=== PATIENT | female | born 1960 | race Caucasian/White ===

== ENCOUNTER 2016-09-22 19:58 | Inpatient (IN) | payer OTHER ==
[2016-09-22] MEDS ORDERED: NS 0.9% 1000 ML* 1,000 ML IV ONE ×2 (20:34→22:30)
--- NOTE | 2016-09-22 20:53 | RAD ---
HISTORY: Dizziness COMPARISONS: None VIEWS:1: Single frontal portable view of the chest at 8:52 PM FINDINGS: LINES AND TUBES: None. CARDIOMEDIASTINAL SILHOUETTE: The cardiomediastinal silhouette is normal for portable technique. PLEURA: The costophrenic angles are sharp. No pleural abnormalities are noted. LUNG PARENCHYMA: There is a 4.5 cm mass of the right upper lung ABDOMEN: The upper abdomen is clear. There is no subphrenic gas. BONES AND SOFT TISSUES: No bone or soft tissue abnormalities are noted. IMPRESSION: 4.5 CM MASS OF THE RIGHT UPPER LUNG CONCERNING FOR NEOPLASM. RECOMMEND CORRELATION WITH CONTRAST-ENHANCED CT OF THE CHEST IN THE NONACUTE SETTING
[2016-09-22] MEDS ORDERED: Pantoprazole IV* 40 MG IV ONE (21:08)
--- NOTE | 2016-09-22 21:08 | RAD ---
HISTORY: Headache COMPARISONS: None TECHNIQUE: Multiple contiguous axial CT scans were obtained of the head without intravenous contrast. FINDINGS: HEMORRHAGE/INFARCT: There is no hemorrhage or acute infarct. MASSES/SHIFT: There is no mass or shift. EXTRA-AXIAL SPACES: There are no extra-axial fluid collections. SULCI AND VENTRICLES: The sulci and ventricles are normal in size and position for the patient's stated age. CEREBRUM: There are no focal parenchymal abnormalities. BRAINSTEM: There are no focal parenchymal abnormalities. CEREBELLUM: There are no focal parenchymal abnormalities. VESSELS: The vessels are grossly normal. PARANASAL SINUSES: The paranasal sinuses are clear. ORBITS: The orbits are unremarkable. BONES AND SOFT TISSUE: No bone or soft tissue abnormalities are noted. OTHER: None IMPRESSION: NO ACUTE INTRACRANIAL PATHOLOGY.
[2016-09-22 21:15] LABS: Hematocrit 38 % (35-47); Hemoglobin 12.7 g/dl (12.0-16.0); Mean Corpuscular HGB Conc 33 g/dl (31-36); Mean Corpuscular Hemoglobin 31 pg (27-31); Mean Corpuscular Volume 94 fL (80-97); Mean Platelet Volume 8 um3 (7.4-10.4); Red Blood Count 4.06 10^6/ul (4.0-5.4); Red Cell Distribution Width 14 % (10.5-15); White Blood Count 11.9 10^3/ul (3.5-10.8)
[2016-09-22] MEDS ORDERED: Ondansetron INJ* 2 MG/ML VIAL ONE (21:25)
[2016-09-22] MEDS ORDERED: Ondansetron INJ* 2 MG/ML VIAL IV ONE (21:26)
[2016-09-22 21:33] LABS: ALT 22 U/L (7-52); AST 50 U/L (13-39); Albumin 3.6 g/dL (3.2-5.2); Alkaline Phosphatase 249 U/L (34-104); BUN/Creatinine Ratio 24.4 (8-20); Blood Urea Nitrogen 11 mg/dL (6-24); CO2 Carbon Dioxide 22 mmol/L (22-32); Calcium 9.9 mg/dL (8.6-10.3); Chloride 88 mmol/L (101-111); EGFR African American 184.7 (>60); EGFR Non-African American 143.6 (>60); Globulin 3.7 g/dL (2-4); Glucose 114 mg/dL (70-100); Magnesium 1.6 mg/dL (1.9-2.7); Total Protein 7.3 g/dL (6.4-8.9)
[2016-09-22 21:34] LABS: Troponin I 0.01 ng/mL (<0.04)
[2016-09-22 21:37] LABS: Anion Gap 8 mmol/L (2-11); Sodium 118 mmol/L (133-145)
[2016-09-22 21:49] LABS: TSH (Thyroid Stimulating Horm) 2.01 mcIU/mL (0.34-5.60)
--- NOTE | 2016-09-22 22:25 | ED ---
Surjit Mcknight Rebecca, scribed for Nadia Padillauel on 09/22/16 at 202 . Complex/Multi-Sys Presentation - HPI Summary HPI Summary: Pt is a 56 y/o F who presents to ED c/o low sodium (119) when she had blood work done at Dr. Zee's office earlier today. She was getting blood work due to L ear pain, diffuse OH, nausea and "heartburn." OH has been present for multiple weeks, worsening in the last week. Characterized as intermittent, sharp sensations. Currently, she is not in any pain. Denies dizziness, weakness. Sx aggravated and alleviated by nothing. At her visit she was prescribed Prilosec. - History Of Current Complaint Chief Complaint: EDGeneral Time Seen by Provider: 09/22/16 20:22 Hx Obtained From: Patient Onset/Duration: Still Present Timing: Intermittent, Lasting: Severity Currently: None Location: Pain At: - diffuse OH Character: Sharp Aggravating Factor(s): Nothing Alleviating Factor(s): Nothing Associated Signs And Symptoms: Positive: Nausea, Other - Low sodium, "heartburn, " L ear pain. Negative: Dizziness, Weakness - Allergies/Home Medications Allergies/Adverse Reactions: Allergies Allergy/AdvReac Type Severity Reaction Status Date / Time No Known Allergies Allergy Verified 09/22/16 20:08 PMH/Surg Hx/FS Hx/Imm Hx Cardiovascular History: Reports: Hx Hypertension Musculoskeletal History: Reports: Other Musculoskeletal History - pain extremities Neurological History: Reports: Other Neuro Impairments/Disorders - tingling numbness legs - Surgical History Surgery Procedure, Year, and Place: tubal,brice Infectious Disease History: No Infectious Disease History: Denies: Traveled Outside the [place] in Last 30 Days - Family History Known Family History: Positive: Cardiac Disease, Hypertension, Diabetes - Social History Alcohol Use: None Substance Use Type: Reports: None Smoking Status (MU): Never Smoked Tobacco Review of Systems Positive: Other - Low sodium Positive: Ear Ache - Left Positive: Nausea, Other - "heartburn" Neurological: Other - Denies dizziness Positive: Headache - Intermittent sharp sensation. Negative: Weakness All Other Systems Reviewed And Are Negative: Yes Physical Exam Triage Information Reviewed: Yes Vital Signs On Initial Exam: Initial Vitals Temp Pulse Resp BP Pulse Ox 98.7 F 108 16 127/65 97 09/22/16 20:08 09/22/16 20:08 09/22/16 20:08 09/22/16 20:08 09/22/16 20:08 Vital Signs Reviewed: Yes Appearance: Positive: Well-Appearing, No Pain Distress Skin: Positive: Warm, Skin Color Reflects Adequate Perfusion, Dry Head/Face: Positive: Normal Head/Face Inspection Eyes: Positive: EOMI, EBENEZER ENT: Positive: Normal ENT inspection, TMs normal Neck: Positive: Supple, Nontender Respiratory/Lung Sounds: Positive: Clear to Auscultation, Breath Sounds Present Cardiovascular: Positive: RRR, Pulses are Symmetrical in both Upper and Lower Extremities Abdomen Description: Positive: Nontender, Soft Bowel Sounds: Positive: Present Musculoskeletal: Positive: Normal, Strength/ROM Intact Neurological: Positive: Normal, Sensory/Motor Intact, Alert, Oriented to Person Place, Time - [place] Coma Scale Best Eye Response: 4 - Spontaneous Best Motor Response: 6 - Obeys Commands Best Verbal Response: 5 - Oriented Diagnostics - Vital Signs Vital Signs Temp Pulse Resp BP Pulse Ox 09/22/16 20:08 98.7 F 108 16 127/65 97 - Laboratory Result Diagrams: 09/22/16 21:00 09/22/16 21:00 Lab Statement: Any lab studies that have been ordered have been reviewed, and results considered in the medical decision making process. - Radiology CXR Xray Interpretation: Positive (See Comments) - 4.5 CM MASS OF THE RIGHT UPPER LUNG CONCERNING FOR NEOPLASM. RECOMMEND CORRELATION WITH CONTRAST-ENHANCED CT OF THE CHEST IN THE NONACUTE SETTING Radiology Interpretation Completed By: Radiologist - CT Brain CT CT Interpretation: No Acute Changes - NO ACUTE INTRACRANIAL PATHOLOGY CT Interpretation Completed By: Radiologist - EKG 2103 Cardiac Rate: Tachycardia - 103 bpm EKG Rhythm: Sinus Tachycardia EKG Interpretation: No acute changes Complex Multi-Symp Course/Dx Assessment/Plan: Pt is a 56 y/o F who presents to ED c/o low sodium (119) when she had blood work done at Dr. Zee's office earlier today. She was getting blood work due to L ear pain, diffuse OH, nausea and "heartburn." OH has been present for multiple weeks, worsening in the last week. Characterized as intermittent, sharp sensations. Currently, she is not in any pain. Denies dizziness, weakness. EKG reveals sinus tachycardia with no acute changes. Brain CT reveals no acute findings. CXR reveals "4.5 CM MASS OF THE RIGHT UPPER LUNG CONCERNING FOR NEOPLASM." WBX of 11.9, sodium of 118. Discussed care of pt with Dr. Lane, who accepts pt for admisison. She will be admitted with Dx of hyponatremia. She understands and agrees. Patient medications reviewed this visit. - Diagnoses Provider Diagnoses: Hyponatremia - Physician Notifications Discussed Care Of Patient With: Dario Lane Time Discussed With Above Provider: 21:42 Instructed by Provider To: Other - Accepts pt for admission Discharge - Discharge Plan Condition: Good Disposition: ADMITTED TO [facility] The documentation as recorded by the Surjit tamayo Rebecca accurately reflects the service I personally performed and the decisions made by , Dawood Padilla.
[2016-09-22] MEDS ORDERED: Albuterol 2.5 MG/3 ML NEB.SOL* (0.083%) INH PRN (22:27)
[2016-09-22] MEDS ORDERED: CMCS: Melatonin (NF) 3 MG TAB PO PRN (22:27)
[2016-09-22] MEDS ORDERED: Acetaminophen TAB* 325 MG PO PRN (22:27)
[2016-09-22] MEDS ORDERED: Ondansetron INJ* 2 MG/ML VIAL IV PRN (22:28)
[2016-09-22] MEDS ORDERED: NS 0.9% 1000 ML* 1,000 ML IV SCH (22:30)
[2016-09-22] MEDS ORDERED: traMADol TAB* 50 MG PO PRN (22:38)
[2016-09-22] MEDS ORDERED: ALPRAZolam TAB* 0.25 MG PO PRN (22:38)
[2016-09-22] MEDS ORDERED: LORazepam TAB(*) 1 MG PO ONE (22:41)
[2016-09-22 22:56] LABS: Alcohol < 10 mg/dL (<10)
--- NOTE | 2016-09-22 23:49 | HP ---
H&P (Free Text) History and Physical: PCP: AMILCAR Zee MD Date/Time of Evaluation: 09/22/2016 4675 CC: low sodium HPI: Mrs Ahumada is a 56YO female HX tissue AVR, HTN, HLD, & chronic BLE pain who was seen by her PCP today for complaint of L ear pain, heartburn, & headache. Labs were ordered finding her sodium to be [address] Zee's office called her recommending ED evaluation. She states her BP meds were increased recently. She denies chest pain, SOB, cough, congestion, F/C, N/V, or other issues. ED evaluation confirms marked hypoNatremia of 118 and CXR reveals a 4.5cm RUL mass. She is a current smoker. CT chest/abd/pel WO reveals numerous liver metastases. PMedHx tissue AVR HTN HLD chronic BLE pain Ambulatory Orders HYDROcodone/ACETAMIN 5-325 MG* 1 tab PO BID 07/20/13 Lisinopril/Hydrochlorothi 10-12.5 mg 1 tab PO DAILY 07/20/13 Medihoney Wound/Burn 1 TOPICAL DAILY 07/20/13 NIFEdipine ER TAB* 60 mg PO DAILY 07/20/13 Vitamin C TAB* 500 mg PO DAILY 07/20/13 Omeprazole 20 mg PO 09/22/16 Allergies No Known Allergies Allergy (Verified 09/22/16 20:08) PSurgHx tissue AVR cholecystectomy SocHx: 1PPD cigarettes unsure how long, denies alcohol and recreational drugs; lives with her ; works at [employer], has applied for disability for chronic BLE pain; full code status FamHx: Mother passed in her 60s from an unknown cancer. Father passed in his 60s from CAD. ROS: as above, otherwise reviewed and all were negative Constitutional: NAD, normally developed, overweight white female vitals: Vital Signs Temp 37.1 C 09/23/16 00:14 Pulse 98 09/23/16 00:01 Resp 23 09/23/16 00:01 BP 119/58 09/23/16 00:01 Pulse Ox 91 09/23/16 00:01 Intake & Output 09/22/16 09/22/16 09/23/16 11:59 23:59 11:59 Intake Total 10 Balance 10 Weight 58.967 kg Intake: IV Fluids 10 HEENM: atraumatic; sclera/conjunctiva: non-icteric/clear; hearing: clinically intact; oropharynx: clear, mucosa moist Neck: soft tissue: non-tender; thyroid: normal Pulmonary: clear to auscultation bilaterally, good aeration, no accessory muscle use CV: RR/RR, normal S1S2, no carotid bruit, no jugular venous distention, 2+ B DP/ PT, no edema Abdominal: soft, non-distended, non-tender, no rebound/guarding/rigidity, normoactive bowel sounds, liver palpable below R costal margin, no costovertebral angle tenderness Musculoskeletal: general: grossly intact; gait: stable Integumental: significant solar damage to exposed skin Psychiatric orientation: AA&O to [facility], but somewhat confused with inaccuracies in history, ie thought it was [facility] who called her about the low Na+ rather than Dr Zee's office affect: mildly anxious & fearful mood: cooperative eye contact: good to fair content: mostly reliable as above memory: mild inaccuracies as above responses: timely insight: fair to good Testing: Lab Results 09/22/16 09/22/16 09/22/16 Range/Units 21:00 21:00 21:00 WBC 11.9 H (3.5-10.8) 10^3/ul RBC 4.06 (4.0-5.4) 10^6/ul Hgb 12.7 (12.0-16.0) g/dl Hct 38 (35-47) % MCV 94 (80-97) fL MCH 31 (27-31) pg MCHC 33 (31-36) g/dl RDW 14 (10.5-15) % Plt Count 211 (150-450) 10^3/ul MPV 8 (7.4-10.4) um3 Neut % (Auto) 82.8 (38-83) % Lymph % (Auto) 8.8 L (25-47) % [place] % (Auto) 7.7 (1-9) % Eos % (Auto) 0.3 (0-6) % Baso % (Auto) 0.4 (0-2) % Absolute Neuts (auto) 9.8 H (1.5-7.7) 10^3/ul Absolute Lymphs (auto) 1.1 (1.0-4.8) 10^3/ul Absolute Monos (auto) 0.9 H (0-0.8) 10^3/ul Absolute Eos (auto) 0 (0-0.6) 10^3/ul Absolute Basos (auto) 0 (0-0.2) 10^3/ul Absolute Nucleated RBC 0 10^3/ul Nucleated RBC % 0 INR (Anticoag Therapy) 0.99 (0.89-1.11) APTT 25.2 L (26.0-36.3) seconds Sodium 118 L* (133-145) mmol/L Potassium 4.0 (3.5-5.0) mmol/L Chloride 88 L (101-111) mmol/L Carbon Dioxide 22 (22-32) mmol/L Anion Gap 8 (2-11) mmol/L BUN 11 (6-24) mg/dL Creatinine 0.45 L (0.51-0.95) mg/dL Est GFR ( Amer) 184.7 (>60) Est GFR (Non-Af Amer) 143.6 (>60) BUN/Creatinine Ratio 24.4 H (8-20) Glucose 114 H (70-100) mg/dL Calcium 9.9 (8.6-10.3) mg/dL Magnesium 1.6 L (1.9-2.7) mg/dL Total Bilirubin 0.70 (0.2-1.0) mg/dL AST 50 H (13-39) U/L ALT 22 (7-52) U/L Alkaline Phosphatase 249 H (34-104) U/L Troponin I 0.01 (<0.04) ng/mL Total Protein 7.3 (6.4-8.9) g/dL Albumin 3.6 (3.2-5.2) g/dL Globulin 3.7 (2-4) g/dL Albumin/Globulin Ratio 1.0 (1-3) TSH 2.01 (0.34-5.60) mcIU/mL Serum Alcohol < 10 (<10) mg/dL ECG, personally reviewed: sinus tachycardia rate 103, no ischemia CXR, personally reviewed: IMPRESSION: 4.5 CM MASS OF THE RIGHT UPPER LUNG CONCERNING FOR NEOPLASM. RECOMMEND CORRELATION WITH CONTRAST-ENHANCED CT OF THE CHEST IN THE NON-ACUTE SETTING CT chest WO, personally reviewed: IMPRESSION: RUL mass is highly suspicious for lung carcinoma. Multiple liver metastases. Possible metastatic mediastinal adenopathy. CT abd/pel WO, personally reviewed: IMPRESSION: Diffuse liver metastases. Large ventral hernia containing small and large bowel without obstruction or inflammation. CT brain WO, personally reviewed: IMPRESSION: NO ACUTE INTRACRANIAL PATHOLOGY. 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 carcinoma : ICU monitoring : 1000cc/day free water restriction : IV normal saline : DC HCTZ component of BP regimen : consider diuretics or 3% saline if refractory to above : supportive care RUL lung mass with hepatic metastases, new finding : CT chest/abd/pel W in AM : obtain tissue diagnosis via BX of RUL mass vs liver : case reviewed with Fuentes Toribio MD oncology who will arrange evaluation in the AM : supportive car anxiety : PRN alprazolam Secondary tissue AVR : no acute issues HTN : continue lisinopril HLD : continue rosuvastatin chronic BLE pain : continue oxycodoneAPAP GERD : continue omeprazole Admission Rational: inpatient for SIADH & work up of new diagnosis lung CA w/ hepatic mets DVTp: SCDs, hold anticoagulation in anticipation of lung/liver BX Code Status: full HCP:
[2016-09-23 01:57] LABS: BUN/Creatinine Ratio 20.5 (8-20); Calcium 9.4 mg/dL (8.6-10.3); EGFR African American 189.5 (>60); EGFR Non-African American 147.4 (>60)
[2016-09-23 04:36] LABS: Hematocrit 35 % (35-47); Hemoglobin 11.5 g/dl (12.0-16.0); Mean Corpuscular HGB Conc 33 g/dl (31-36); Mean Corpuscular Hemoglobin 31 pg (27-31); Mean Corpuscular Volume 94 fL (80-97); Mean Platelet Volume 7 um3 (7.4-10.4); Red Blood Count 3.68 10^6/ul (4.0-5.4); Red Cell Distribution Width 14 % (10.5-15); White Blood Count 7.3 10^3/ul (3.5-10.8)
[2016-09-23 04:49] LABS: BUN/Creatinine Ratio 21.2 (8-20); Calcium 8.5 mg/dL (8.6-10.3); EGFR African American 264.2 (>60); EGFR Non-African American 205.4 (>60); Potassium 3.7 mmol/L (3.5-5.0)
[2016-09-23] MEDS: Omeprazole CAP* 20 MG PO SCH (06:14)
[2016-09-23] MEDS ORDERED: Iohexol 300* (CONTRAST) 10 ML SDV IV ONE (07:41)
[2016-09-23] MEDS: Docusate CAP* 100 MG PO SCH ×2 (07:50→21:34)
--- NOTE | 2016-09-23 07:54 | RAD ---
Indication: Right upper lobe mass is present on chest x-ray. CT of the chest was performed without IV contrast. Coronal and sagittal reconstructed images were obtained. Inferior thyroid lobes are unremarkable. There is pretracheal lymph node measuring 8 mm. Prevascular space lymph nodes are noted measuring up to 7 mm. The heart demonstrates no pericardial effusion. A lobulated mass is noted in the periphery of the right upper lobe posteriorly measuring 4.3 x 2.5 cm. This is consistent with a neoplastic lesion. No other masses are noted in the lung guzman. The visualized abdominal organs demonstrates multiple low density lesions in the liver. This is consistent with metastatic disease. The spleen is normal in size. IMPRESSION: Lobulated mass in the right upper lobe posteriorly suspicious for neoplastic process. Hepatomegaly with multiple hepatic lesions consistent with metastatic disease.
--- NOTE | 2016-09-23 08:04 | RAD ---
INDICATION: Right upper lobe mass with multiple liver metastases. COMPARISON: Correlation is made with a prior CT angiogram of the abdomen and pelvis from July 20, 2013. TECHNIQUE: A CT scan of the abdomen and pelvis was performed without intravenous or oral contrast. Contiguous axial sections were obtained from the lung bases through the symphysis pubis. Images were reconstructed in the coronal and sagittal planes. FINDINGS: There is mild dependent bilateral lower lobe subsegmental atelectasis. No pleural effusion is present. The liver is markedly enlarged with multiple hypodense lesions throughout measuring up to 5.4 cm in size most consistent with metastatic disease. The spleen is normal in size without focal abnormality. The patient is status post cholecystectomy. The pancreas is normal in size. There is mild enlargement of the left adrenal gland. The right adrenal gland appears to be within normal limits. The kidneys are normal in size. There are small bilateral calcifications most consistent with renal calculi. No hydronephrosis is seen. There is severe calcific plaque present within the abdominal aorta. There appears to be an aortic biiliac by pass graft present. No significant enlarged retroperitoneal lymph nodes are seen. The stomach, small and large bowel appear nondistended. The appendix is not well visualized although no inflammatory changes are seen in the right lower quadrant. There is a large ventral hernia centered in the midline containing a portion of the transverse colon in small bowel loops which appear nondistended. No bowel wall thickening is appreciated. There is moderate descending and sigmoid diverticulosis without evidence for diverticulitis. The uterus is anteverted and normal in size. No free intraperitoneal air or fluid is seen. No significant focal osseous abnormality is seen. IMPRESSION: 1. ENLARGED LIVER WITH MULTIPLE HYPODENSE LESIONS CONSISTENT WITH METASTATIC DISEASE. 2. MILD ENLARGEMENT OF THE LEFT ADRENAL GLAND. 3. LARGE VENTRAL ABDOMINAL HERNIA CONTAINING NONDISTENDED SMALL BOWEL AND COLON. 3. SMALL BILATERAL NONOBSTRUCTING RENAL CALCULI.
--- NOTE | 2016-09-23 10:01 | CONSULT ---
Consultation - Reason for Consultation Reason for Consultation: lung and liver masses Ordering Provider: Dario Lane Chief Complaint: headaches and nausea History of Present Illness: 56 yo F w PMH of 40 pk yr smoking, HTN, hyplipidemia, and tissue AVR presenting with headache and vomiting and found to be markedly hyponatremic with a dominant lung lesion and innumerable liver mets. Radha is a fairly poor historian but reports 10 days of nausea, vomiting, headaches and left ear pain. She went to her PMD with these complaints and blood work revealed a sodium of 119. She was referred to the ER where repeat was 118 and had a chest CT which revealed a 4.3 cm lobulated RUL mass with multiple hepatic lesions. She was admitted to the ICU and hydrated and her Na this am is 128. She admits to weight loss, though is not clear at how much. At her heaviest she was 165. She reports that her nausea and vomiting are related to heart burn. She denies diplopia, blurred vision or focal weakness. She does have left sided temporal headaches. She denies bony pain, abdominal pain ( specifically denies RUQ pain), or change in bowel movements. She does have bilateral LE painful neuropathy which she reports to having a nerve "nicked" during her aortic valve replacement. She does not drink. She can not remember when her last mammogram was and has not had a colonoscopy. She has a mild baseline cough but no chest pain or shortness of breath. Allergies/Medications Medication: Acetaminophen (Tylenol Tab*) 650 mg PO Q6H PRN PRN Reason: FEVER/PAIN Albuterol (Ventolin 2.5 Mg/3 Ml Neb.Dafne*) 2.5 mg INH Q2H PRN PRN Reason: SOB/WHEEZING Alprazolam (Xanax Tab*) 0.25 mg PO Q8H PRN PRN Reason: ANXIETY Docusate Sodium (Colace Cap*) 200 mg PO BID ON LICENSE OF [facility] Last Admin: 09/23/16 07:50 Dose: 200 mg Melatonin (Melatonin (Nf)) 3 mg PO BEDTIME PRN; Protocol PRN Reason: Sleep Omeprazole (Prilosec Cap*) 20 mg PO DAILY@0600 ON LICENSE OF [facility] Last Admin: 09/23/16 06:14 Dose: 20 mg Ondansetron HCl (Zofran Inj*) 4 mg IV Q6H PRN PRN Reason: NAUSEA Tramadol HCl (Ultram*) 50 mg PO Q6H PRN PRN Reason: PAIN Allergies/Adverse Reactions: Allergies Allergy/AdvReac Type Severity Reaction Status Date / Time Latex Allergy Itching Verified 09/23/16 05:45 History - Past Medical History Other History: HTN. hyperlipidemia. tobacco abuse. peripheral neuropathy/ pain. tissue AVR. cholecystectomy - Family History Other Family History: mother some type of cancer, in her 60s - Social History Other Social History: +heavy tobacco, no ETOH, 1 child Review of Systems - Review of Systems General Comments: extensive ROS as per HPI Physical Exam - Physical Exam Physical Examination: Vital Signs Temp Pulse Resp BP Pulse Ox 97.7 F 94 17 90/49 91 09/23/16 08:00 09/23/16 06:00 09/23/16 06:00 09/23/16 06:00 09/23/16 06:00 sitting up in NAD perr eomi poor dentition moist mucous membranes no EMILIA soft +palpable hepatomegaly, large ventral hernia, easily reduced no le edema A+O x 3, nonfocal neurological exam though did not ambulate Results - Lab Results Lab Results: 09/23/16 09/23/16 09/23/16 00:40 04:20 04:20 WBC 7.3 RBC 3.68 L Hgb 11.5 L Hct 35 MCV 94 MCH 31 MCHC 33 RDW 14 Plt Count 150 MPV 7 L Sodium 120 L 128 L D Potassium 4.0 3.7 Chloride 91 L 100 L Carbon Dioxide 23 23 Anion Gap 6 5 BUN 9 7 Creatinine 0.44 L 0.33 L Est GFR ( Amer) 189.5 264.2 Est GFR (Non-Af Amer) 147.4 205.4 BUN/Creatinine Ratio 20.5 H 21.2 H Glucose 96 89 Calcium 9.4 8.5 L - Radiology Radiology Results: CT C/A/P with PO and IV contrast: pending official read, personal review large RUL mass, innumerable liver lesions, no bulky adenopathy, no clear bony lesions Assessment and Plan Impression: 56 yo F w long standing tobacco use presenting with hyponatremia and found to have a large lung lesion and multiple liver mets. This is most suspicious for a lung primary, with differential including small cell given the liver met pattern. I discussed this with Radha and her at length. I would recommend a liver biopsy for tissue diagnosis and follow up with me next week. We discussed that treatment options depend on cancer type, however if this is metastatic lung cancer as I suspect, all treatments are palliative. In terms of her hyponatremia, I suspect that it is multifactorial and related to 1)HCTZ use, and 2)SIADH from her tumor. She is already improving. In terms of her headaches, she will need a brain MRI with contrast next week (she had IV contrast today and so can not get for 48 hours unless emergent). I will see her in my main [facility] office 09/30 at 11 am. Please provide her with this information on discharge. I will also order her MRI for earlier in the week next week.
--- NOTE | 2016-09-23 12:41 | RAD ---
Indication: Liver metastases, lung mass, hyponatremia Contrast: Administered 79.1 ml of OMNIPAQUE 300 mg/ml. CT of the chest, abdomen and pelvis was performed after oral and IV contrast administration. Inferior thyroid lobes are unremarkable. There is a prevascular space lymph node measuring 8 mm. Precarinal lymph node measuring up to 9 mm. Right hilar adenopathy is noted. The heart demonstrates no pericardial effusion. The trachea and major bronchi appear patent. Lobulated mass in the right upper lobe is again identified measuring 4.0 cm in length x 4.5 cm AP x 2.8 cm in greatest width. No evidence of alveolar consolidation is noted. The trachea and major bronchi appear patent. No atelectasis is noted. No other nodules are identified. CT of the abdomen and pelvis demonstrates the liver to be enlarged. Innumerable low density lesions are present throughout the liver consistent with metastatic disease. The spleen is normal in size. The pancreas demonstrates no mass or pancreatic duct dilatation. The common duct is not dilated. No adrenal lesions are noted. The kidneys demonstrate symmetric nephrograms without focal lesions. Atherosclerotic aorta is noted. Patient is status post aortic bifemoral bypass graft. There is a ventral wall hernia containing colon without evidence of obstruction. CT of the pelvis demonstrates diverticulosis without definite evidence of diverticulitis. The uterus and ovaries are unremarkable. IMPRESSION: 1. Dominant lobulated mass in the right upper lobe as described previously. 2. Multiple hepatic lesions consistent with metastatic disease. 3. Ventral hernia containing colon.
[2016-09-23] MEDS ORDERED: fentaNYL* 50 MCG/ML 2 ML VIAL (100 MCG VIAL) ONE (14:04)
--- NOTE | 2016-09-23 15:47 | RAD ---
Indication: Hepatic lesions. Using usual aseptic technique and lidocaine as a local anesthetic lesions in the right lobe of liver was localized. Under ultrasound guidance fine-needle aspiration was performed. One pass was made. IMPRESSION: Successful ultrasound-guided localization and biopsy of the lesion in the right lobe of the liver.
[2016-09-23] MEDS: Morphine INJ* 2 MG/ML 1 ML SYRINGE IV PRN ×2 (16:15→21:29)
--- NOTE | 2016-09-23 17:10 | PN ---
Subjective Date of Service: 09/23/16 Interval History: HOSPITALIST PROGRESS NOTE Patient seen and examined at bedside. She offers no complaints at this time. Denies OH, N/V, dizziness. Family History: Unchanged from Admission Social History: Unchanged from Admission Past Medical History: Unchanged from Admission Objective Active Medications: Acetaminophen (Tylenol Tab*) 650 mg PO Q6H PRN PRN Reason: FEVER/PAIN Albuterol (Ventolin 2.5 Mg/3 Ml Neb.Dafne*) 2.5 mg INH Q2H PRN PRN Reason: SOB/WHEEZING Alprazolam (Xanax Tab*) 0.25 mg PO Q8H PRN PRN Reason: ANXIETY Last Admin: 09/23/16 11:21 Dose: 0.25 mg Docusate Sodium (Colace Cap*) 200 mg PO BID [facility] Last Admin: 09/23/16 07:50 Dose: 200 mg Melatonin (Melatonin (Nf)) 3 mg PO BEDTIME PRN; Protocol PRN Reason: Sleep Morphine Sulfate (Morphine Inj (Syringe)*) 2 mg IV Q4H PRN PRN Reason: PAIN Last Admin: 09/23/16 16:15 Dose: 2 mg Omeprazole (Prilosec Cap*) 20 mg PO DAILY@0600 [facility] Last Admin: 09/23/16 06:14 Dose: 20 mg Ondansetron HCl (Zofran Inj*) 4 mg IV Q6H PRN PRN Reason: NAUSEA Tramadol HCl (Ultram*) 50 mg PO Q6H PRN PRN Reason: PAIN Last Admin: 09/23/16 14:55 Dose: 50 mg Vital Signs 09/23/16 09/23/16 09/23/16 14:50 14:55 16:15 Temperature 98.5 F Pulse Rate 100 Respiratory 18 18 18 Rate Blood Pressure 121/57 (mmHg) O2 Sat by Pulse 93 Oximetry Oxygen Devices in Use Now: None Appearance: Middle aged lady lying in bed in NAD. Eyes: No Scleral Icterus Ears/Nose/Mouth/Throat: Mucous Membranes Moist Neck: Trachea Midline Respiratory: Symmetrical Chest Expansion and Respiratory Effort, Clear to Auscultation Cardiovascular: RRR - Normal S1 and S2 Abdominal: NL Sounds; No Tenderness; No Distention Extremities: No Edema Neurological: Alert and Oriented x 3, NL Muscle Strength and Tone Lines/Tubes/Other Access: Clean, Dry and Intact Peripheral IV Nutrition: Taking PO's Result Diagrams: 09/23/16 04:20 09/23/16 04:20 Assess/Plan/Problems-Billing Assessment: Mrs. Ahumada is a 56yo F with PMH of HTN, HLD, s/p biological AVR, chronic bilateral LE pain, tobacco abuse, who was sent to ED due to significant hyponatremia, found to have a lung tumor with probable liver mets. - Patient Problems (1) Hyponatremia Comment: - Likely secondary to SIADH associated with Lung CA, worsened by HCTZ. - Already improving. - Continue to monitor. (2) Liver metastases Comment: - Suspect Lung CA as primary with liver mets. - For liver biopsy today. (3) HTN (hypertension) Comment: - Controlled. - D/c HCTZ and continue Lisinopril. (4) DVT prophylaxis Comment: - No heparin due to liver biopsy. - SCDs. (5) Full code status Status and Disposition: Inpatient.
[2016-09-23 20:09] LABS: BUN/Creatinine Ratio 20.6 (8-20); Calcium 8.8 mg/dL (8.6-10.3); EGFR African American 255.2 (>60); EGFR Non-African American 198.5 (>60); Potassium 3.7 mmol/L (3.5-5.0)
[2016-09-24] MEDS: Morphine INJ* 2 MG/ML 1 ML SYRINGE IV PRN (01:56)
[2016-09-24] MEDS: Omeprazole CAP* 20 MG PO SCH (05:31)
[2016-09-24 05:36] LABS: BUN/Creatinine Ratio 21.2 (8-20); Calcium 8.9 mg/dL (8.6-10.3); EGFR African American 264.2 (>60); EGFR Non-African American 205.4 (>60); Potassium 3.6 mmol/L (3.5-5.0)
[2016-09-24] MEDS: Docusate CAP* 100 MG PO SCH (07:55)
[2016-09-24 07:58] VITALS: BP 126/61
[2016-09-24] MEDS ORDERED: HYDROcodone/ACETAMIN 5-325 MG* 1 TAB PO SCH (09:00)
[2016-09-24] MEDS ORDERED: Lisinopril TAB* 10 MG PO SCH (09:00)
--- NOTE | 2016-09-25 16:32 | DS ---
CC: Dr. Marcos Zee; Dr. Aguila DISCHARGE SUMMARY: DATE OF ADMISSION: 09/22/16 DATE OF DISCHARGE: 09/24/16 PRIMARY CARE PROVIDER: Dr. Marcos Zee. ONCOLOGIST: Dr. Aguila. DISCHARGE DIAGNOSES: 1. Severe hyponatremia secondary to syndrome of inappropriate antidiuretic hormone secretion, likel y associated with lung tumor and hydrochlorothiazide use. 2. Right upper lobe tumor with probable liver metastasis. SECONDARY DIAGNOSES: 1. Status post biological aortic valve replacement. 2. Hypertension. 3. Hyperlipidemia. 4. Chronic bilateral lower extremity pain. MEDICATION LIST: 1. Omeprazole 20 mg p.o. daily. 2. Vitamin C 500 mg p.o. twice daily. 3. Hydrocodone/acetaminophen 5/325 mg 1 tablet p.o. b.i.d. 4. Nifedipine ER 60 mg p.o. daily. 5. Ibuprofen 600 mg p.o. q.6 hours p.r.n. pain. NEW MEDICATIONS: 1. Lisinopril 10 mg p.o. daily. 2. Colace 200 mg p.o. b.i.d. p.r.n. constipation. 3. Nicotine patch 21 mg topical daily, remove at bedtime. 4. Nicotine gum 2 mg p.o. q.2 hours p.r.n. cravings. 5. Alprazolam 0.25 mg p.o. b.i.d. p.r.n. anxiety, MDD 2 tablets, dispensed 14 tablets. The [facility] prescription monitoring program was consulted and the patient last received the p rescription for hydrocodone on September 01. There is no prescription for alprazolam. Reference manuela hickey is [id number]. HOSPITAL COURSE: Ms. Ahumada is a 56-year-old lady with past medical history as stated above that was seen by her PCP with complaints of heartburn, headache, dizziness. Labs were ordered and she was f ound to have a sodium of 119, so she was sent to the emergency room for further evaluation. Her wor kup in the emergency room revealed a sodium of 118 and a chest x-ray showed a 4.5 cm mass of the rig ht upper lung concerning for neoplasm. The patient was admitted to the intensive care unit to manag e her hyponatremia. The impression was that the patient had a SIADH likely secondary to a lung carc inoma and worsened by the addition of hydrochlorothiazide to her antihypertensive regimen. Hydrochlorothiazide was discontinued. The patient was started on 1 L a day fluid restriction and sh e had progressive improvement on her sodium. By the day of discharge, the sodium was up to 129. As part of her workup, the patient had a CT of the brain without contrast that showed no acute intra cranial pathology. CT of the chest without contrast showed a lobulated mass in the right upper lobe posteriorly suspicious for neoplastic process. There was also hepatomegaly with multiple hepatic l esions consistent with metastatic disease. She underwent a CT of the abdomen and pelvis without con trast that showed enlarged liver with multiple hyperdense lesions consistent with metastatic disease , mild enlargement of the left adrenal gland, large ventral abdominal hernia containing nondistended small bowel in colon, small bilateral nonobstructing renal calculi. She also underwent a CT of the chest abdomen and pelvis with contrast that showed similar findings o f a dominant lobulated mass in the right upper lobe, multiple hepatic lesions consistent with metas tatic disease and ventral hernia containing colon. The patient was seen in consultation by Oncology (Dr. Aguila) and her impression was the patient w as a 56-year-old lady with a longstanding tobacco use, presenting with hyponatremia and found to hav e a large lung lesion and multiple liver mets. This is most suspicious for lung primary with differe ntial including small cell given the liver metastasis pattern. She recommended liver biopsy and fol lowup with her next week on September 30 at 11 a.m. In terms of her hyponatremia, she suspected it was multifactorial related to hydrochlorothiazide use and SIADH from her tumor. In terms of the patient 's headache, her recommendation was for MRI of the brain with contrast that she will arrange for ear ly next week. The patient underwent an ultrasound-guided liver biopsy on October 01 and pathology report is pending at the time of this dictation and will need to be followed as outpatient. The patient states that she had minimal pain on the biopsy site and was feeling well enough to be discharged home today. The patient has a history of tobacco abuse and is interested in quitting at this time. Nicotine sup plementation was prescribed, but the patient will need further support as outpatient. She has a BMP request for September 27 to continue to monitor her sodium. The results will be sent to Dr. Zee and to Dr. Aguila. She is mostly stable today to go home. She will see Dr. Zee on September 29 at 3:10 p.m. and she will see Dr. Aguila on September 30 at 11 a.m. PHYSICAL EXAMINATION: Vital Signs: Temperature 98.6, heart rate is 97, respiratory rate is 20, oxy gen saturation 91% on room air, blood pressure is 126/61. General: The patient is a thin middle-ag ed lady, sitting up in bed, in no acute distress. CVS: Normal S1 and S2. Regular rate and rhythm. Chest: Breath sounds present bilaterally with no added sounds. Abdomen: Soft. The patient has small ecchymosis to her right upper quadrant, but no significant tenderness. Bowel sounds are prese nt. Extremities: No edema. Neuro: She is alert and oriented x3. She is able to move all 4 extrem ities. DIET: Heart healthy diet. The patient was advised to avoid excess caffeine and she is in a fluid r estriction of 1.5 L a day. ACTIVITY: As tolerated. DISPOSITION: To home. STATUS WHILE IN THE HOSPITAL: Inpatient. Please keep in mind this is a summarized version of this patient's hospital stay. If you need more i nformation, please feel free to call me at [phone] or please obtain the full medical records. TIME SPENT: Approximately 45 minutes were spent to complete this discharge. [id number]/[facility] #: [id number]
== END 2016-09-24 11:15 | disposition home or self-care (01) | DRG 424 ==
LOC: ED 19:58 → ICU 22:14 → MEDTELE 09-23 11:34
PROVIDERS: ADMIT Hospitalist; ATTEND Internal Medicine
PROC: 0FB13ZX Excision of Right Lobe Liver, Percutaneous Approach, Diagnostic (ICD-10-PCS; principal; 2016-09-23)
DX: E22.2 Syndrome of inappropriate secretion of antidiuretic hormone (principal); C34.91 Malignant neoplasm of unspecified part of right bronchus or lung; C78.7 Secondary malignant neoplasm of liver and intrahepatic bile duct; I10 Essential (primary) hypertension; E78.5 Hyperlipidemia, unspecified; G89.29 Other chronic pain; F17.210 Nicotine dependence, cigarettes, uncomplicated; E66.3 Overweight; T50.2X5A Adverse effect of carbonic-anhydrase inhibitors, benzothiadiazides and other diuretics, initial encounter; M79.605 Pain in left leg; M79.604 Pain in right leg; R16.0 Hepatomegaly, not elsewhere classified; N20.0 Calculus of kidney; K43.9 Ventral hernia without obstruction or gangrene; F41.9 Anxiety disorder, unspecified; K21.9 Gastro-esophageal reflux disease without esophagitis; R40.2362 Coma scale, best motor response, obeys commands, at arrival to emergency department; R40.2142 Coma scale, eyes open, spontaneous, at arrival to emergency department; R40.2252 Coma scale, best verbal response, oriented, at arrival to emergency department; G62.9 Polyneuropathy, unspecified; R51 Headache; Z95.4 Presence of other heart-valve replacement; Z80.9 Family history of malignant neoplasm, unspecified; Z82.49 Family history of ischemic heart disease and other diseases of the circulatory system; Z68.25 Body mass index [BMI] 25.0-25.9, adult; Z90.49 Acquired absence of other specified parts of digestive tract; Z98.51 Tubal ligation status; Z83.3 Family history of diabetes mellitus
CPT/HCPCS: 36415; 47000; 70450; 71010; 71250; 71260; 74176; 74177; 76942; 80048; 80053; 80320; 83735; 84443; 84484; 85025; 85027; 85610; 85652; 85730; 87641; 93005; A9270-GY; G0480; J2270; J2405; J3010; Q9967

== ENCOUNTER 2016-10-25 07:26 | Day surgery (SDC) | payer OTHER ==
[~2016-10-25 07:26] MED LIST: Buffered Lidocaine 0.9% SYRIN* 5 ML/SYR SYRINGE INTRADERM ONE; NS 0.9% 1000 ML* 1,000 ML IV SCH
[2016-10-25] MEDS ORDERED: Buffered Lidocaine 0.9% SYRIN* 5 ML/SYR SYRINGE ONE (07:28)
[2016-10-25] MEDS ORDERED: ceFAZolin 2 GM PREMIX (*) 50 ML IVPB ONE (07:28)
[2016-10-25 07:58] LABS: Hematocrit 35 % (35-47); Hemoglobin 11.5 g/dl (12.0-16.0); Mean Corpuscular HGB Conc 33 g/dl (31-36); Mean Corpuscular Hemoglobin 31 pg (27-31); Mean Corpuscular Volume 93 fL (80-97); Mean Platelet Volume 8 um3 (7.4-10.4); Red Blood Count 3.75 10^6/ul (4.0-5.4); Red Cell Distribution Width 15 % (10.5-15); White Blood Count 4.2 10^3/ul (3.5-10.8)
[2016-10-25 08:06] LABS: Add Diff/Slide Review? Slide Review Added; Comments Flag Yes
[2016-10-25] MEDS ORDERED: DiMENhydriNATE IV* 50 MG/ML VIAL IV PUSH PRN (08:59)
[2016-10-25] MEDS ORDERED: PROCHLORPERAZINE INJ 5 MG/ML 2 ML VIAL IV PRN (08:59)
[2016-10-25] MEDS ORDERED: Acetaminophen TAB* 325 MG PO PRN (08:59)
[2016-10-25] MEDS ORDERED: HYDROcodone/ACETAMIN 5-325 MG* 1 TAB PO PRN (08:59)
[2016-10-25] MEDS ORDERED: fentaNYL* 50 MCG/ML 2 ML VIAL (100 MCG VIAL) ONE (09:10)
[2016-10-25] MEDS ORDERED: KETAMINE HCL* 50 MG/ML 10 ML VIAL ONE (09:10)
[2016-10-25] MEDS ORDERED: Midazolam* 1 MG/ML 2 ML VIAL (2 MG) ONE ×2 (09:10→10:06)
[2016-10-25 09:15] LABS: Eosinophils % 1 % (0-6); Immature Granulocytes 4 % (0-9); Metamyelocytes % 2 % (0-2); Myelocytes % 2 % (0-1); Neutrophil % 43 % (38-83); Reactive Lymph % 2 % (0-6)
[2016-10-25 09:16] LABS: RBC Morphology Normal (Normal)
[2016-10-25] MEDS ORDERED: Lidocaine 1% INJ* 10 MG/ML 30 ML SDV ONE (09:34)
[2016-10-25] MEDS ORDERED: Propofol* 10 MG/ML 20 ML BTL IV PUSH ONE (10:30)
[2016-10-25] MEDS ORDERED: Dexamethasone IV* 4 MG/ML 1 ML (4 MG) ONE (10:30)
[2016-10-25] MEDS ORDERED: Famotidine IV* 10 MG/ML 2 ML (20 mg) ONE (10:30)
[2016-10-25] MEDS ORDERED: Lidocaine 2% PF * 5 ML VIAL ONE (10:30)
[2016-10-25] MEDS ORDERED: oxyCODONE/Acetamin 5/325 MG* TAB PO PRN (11:09)
[2016-10-25 11:25] VITALS: BP 128/74
--- NOTE | 2016-10-25 11:40 | RAD ---
Indication: Post power port placement. Comparison: September 23, 2016 CT. Technique: Upright AP 1022 hours Report: Tip of LEFT chest port is at the level of the superior vena cava RIGHT atrial junction. Negative for pneumothorax. 3.6 x 3.2 cm peripheral apical segment RIGHT upper lobe mass corresponds with prior CT finding. No additional conspicuous focal pulmonary lesions. Negative for pleural effusions. Negative for cardiomegaly. Unremarkable central pulmonary vasculature and mediastinal contours. IMPRESSION: Appropriate position of the tip of the LEFT chest port. Negative for pneumothorax.
--- NOTE | 2016-10-25 11:42 | RAD ---
INDICATION: chest port placement COMPARISONS: None relevant TECHNIQUE: Fluoroscopy was provided for a vascular access procedure. Total fluoroscopy time is: 98.3 seconds FINDINGS: Spot images demonstrate a left-sided chest port overlying the cavoatrial junction. IMPRESSION: FLUOROSCOPY WAS PROVIDED FOR A VASCULAR ACCESS PROCEDURE CPT II Codes: 6045F
[2016-10-25] MEDS ORDERED: HYDROcodone/ACETAMIN 5-325 MG* 1 TAB ONE (11:43)
--- NOTE | 2016-10-26 01:35 | OP ---
CC: HONEY Bob * DATE OF OPERATION: 10/25/16 - [facility] DATE OF : 58 SURGEON: Juan C Barnett MD VIDEO PRODUCTION SPECIALIST: None. ANESTHESIOLOGIST: Henry Delvalle MD ANESTHESIA: Local with monitored anesthesia care. PRE-OP DIAGNOSIS: Right-sided lung cancer. POST-OP DIAGNOSIS: Right-sided lung cancer. OPERATIVE PROCEDURE: Insertion of an 8-Guinean left chest wall percutaneous subclavian vein PowerPort. ESTIMATED BLOOD LOSS: Minimal. SPECIMENS: None. COMPLICATIONS: None. DESCRIPTION OF PROCEDURE: Written informed consent was obtained. The left and right chest were marked with indelible ink and preoperative antibiotics were administered. The patient was taken to the operating room and placed in the supine position. Sequential compression devices were placed in the lower extremities. Anesthesia was administered in the left and right chest and upper and lower neck were prepped and draped in the usual sterile fashion. Time-out verification was completed. The patient was placed in Trendelenburg position and 1% lidocaine with epinephrine was infiltrated in the left chest wall just below the mid portion of the clavicle. An 18-gauge Cook needle was used to puncture the subclavian vein on the first pass with good blood return. Guidewire was inserted into the superior vena cava without difficulty and confirmed to be in position on fluoroscopy. Next, a small transverse incision was made just below the initial puncture site and a subcutaneous pocket was made large enough to fit the port. The catheter was then tunneled from the port site to the initial puncture site; and, using the peel-away sheath dilator system, we were able to insert the catheter into the junction of the right atrium and superior vena cava. The catheter withdrew blood well and was flushed without difficulty. The catheter itself was cut to the appropriate length and attached to the port in the usual fashion. The port was placed in the pocket. Once again, it was checked with a Rojas needle and flushed well and withdrew blood without difficulty. The port was then secured to the subcutaneous tissue with 2 separate 2-0 Prolene suture. Hemostasis was assured. The transverse incision was closed with a running 3-0 and 4-0 subcuticular Polysorb suture. The puncture site was also closed with a single 4-0 Polysorb suture. Steri-Strips were applied. The port was then accessed with a right angle Rojas needle and flushed with saline and heparin. Appropriate occlusive dressing was placed for plans for chemotherapy to be administered later today. The patient tolerated the procedure well and was taken to recovery room in stable condition. The postoperative chest x-ray showed no pneumothorax and the catheter to be in good position. [id number]/[facility] #: [id number] [facility]
== END 2016-10-25 11:48 | disposition home or self-care (01) ==
LOC: OR 07:26
PROVIDERS: ATTEND Surgery
DX: C34.11 Malignant neoplasm of upper lobe, right bronchus or lung (principal); I10 Essential (primary) hypertension; E11.51 Type 2 diabetes mellitus with diabetic peripheral angiopathy without gangrene; C78.7 Secondary malignant neoplasm of liver and intrahepatic bile duct; E87.1 Hypo-osmolality and hyponatremia; R51 Headache; F41.9 Anxiety disorder, unspecified; Z88.1 Allergy status to other antibiotic agents; Z87.891 Personal history of nicotine dependence
CPT/HCPCS: 36415; 71010; 76000; 85025; C1788; J0690; J1100; J1642; J2001; J2250; J2704; J3010

== ENCOUNTER 2017-03-21 17:43 | Inpatient (IN) | payer OTHER ==
[2017-03-21] MEDS ORDERED: Prochlorperazine TAB* 10 MG PO PRN (17:50)
[2017-03-21] MEDS ORDERED: Docusate CAP* 100 MG PO PRN (17:50)
[2017-03-21] MEDS ORDERED: Nicotine PATCH 21 MG/24 HR* PATCH TRANSDERM PRN (17:50)
[2017-03-21] MEDS ORDERED: Ondansetron TAB* 4 MG PO PRN (17:50)
[2017-03-21] MEDS: Cyclobenzaprine TAB* 10 MG PO PRN (19:48)
[2017-03-21] MEDS: Furosemide IV* 10 MG/ML VIAL (40 MG) IV SCH (19:49)
[2017-03-21] MEDS: Potassium Chlor TAB* 10 MEQ TAB.ER PO SCH (19:49)
[2017-03-22] MEDS: oxyCODONE TAB* 5 MG TAB PO PRN ×3 (01:54→20:06)
[2017-03-22] MEDS ORDERED: cefTRIAXone(*) 1 GM in NS 0.9% 50 ML* 50 ML IVPB ONE (05:00)
[2017-03-22 06:23] LABS: EGFR Non-African American 229.3 (>60)
[2017-03-22 06:56] LABS: Monocytes % 9 % (0-13)
[2017-03-22 06:57] LABS: Hematocrit 26 % (35-47); Hemoglobin 9.1 g/dl (12.0-16.0); Mean Corpuscular HGB Conc 35 g/dl (31-36); Mean Corpuscular Hemoglobin 33 pg (27-31); Mean Corpuscular Volume 95 fL (80-97); Mean Platelet Volume 8 um3 (7.4-10.4); Platelet Count 33 10^3/ul (150-450); Red Blood Count 2.76 10^6/ul (4.0-5.4); Red Cell Distribution Width 14 % (10.5-15); White Blood Count 0.2 10^3/ul (3.5-10.8)
[2017-03-22] MEDS ORDERED: KCL 20 MEQ/100 ML IVPREMIX* 20 MEQ/100 ML BAG IV SCH (08:00)
[2017-03-22] MEDS ORDERED: Acetaminophen TAB* 325 MG ONE (08:53)
[2017-03-22] MEDS ORDERED: NIFEdipine ER TAB* 30 MG PO SCH (09:00)
[2017-03-22] MEDS ORDERED: Acetaminophen TAB* 325 MG PO PRN (09:01)
[2017-03-22] MEDS: Furosemide IV* 10 MG/ML VIAL (40 MG) IV SCH (09:04)
[2017-03-22] MEDS: Omeprazole CAP* 20 MG PO SCH (09:04)
[2017-03-22] MEDS: Ascorbic Acid TAB* 500 MG PO SCH (09:04)
[2017-03-22] MEDS: Dexamethasone TAB* 4 MG PO SCH (09:04)
[2017-03-22] MEDS: Potassium Chlor TAB* 10 MEQ TAB.ER PO SCH ×2 (09:04→20:06)
[2017-03-22] MEDS: KCL premix 10MEQ/50 ML x 3 RUNS IV SCH ×5 (09:06→16:21)
[2017-03-22] MEDS: ALPRAZolam TAB* 0.25 MG PO PRN (09:30)
[2017-03-22] MEDS ORDERED: Vancomycin per Pharmacy* NOTE FOLLOW UP PRN (09:32)
[2017-03-22] MEDS ORDERED: CEFEPIME 2 GM IVPB SCH ×2 (10:00)
[2017-03-22] MEDS ORDERED: NS 0.9% 1000 ML* 1,000 ML IV SCH (10:45)
[2017-03-22] MEDS ORDERED: Vancomycin(*) 1,000 MG in NS 0.9% 250 ML* 250 ML IVPB ONE (11:00)
[2017-03-22] MEDS: Cefepime(*) 2 GM in D5W 50 ML BAG* 50 ML IVPB SCH ×2 (11:39→18:24)
[2017-03-22] MEDS ORDERED: NS 0.9% 1000 ML* 2,000 ML IV ONE (13:31)
[2017-03-22] MEDS: Hydrocortisone INJ* 100 MG VIAL IV SCH ×2 (14:05→22:49)
--- NOTE | 2017-03-22 14:40 | CONSULT ---
Consult Consult: CRITICAL CARE MEDICINE DATE: 03/22/17 TIME: 1400 PRIMARY ONCOLOGY PROVIDER: Mingo REFERRING PROVIDER: Malu REASON/CHIEF COMPLAINT: severe neutropenic sepsis HISTORY OF PRESENT ILLNESS: 56 F with metastatic SCLC undergoing palliative chemotx presenting 03/21 with feeling weak and weeping gonzalez, admitted and tx for cellulitis. Today her BP was low and concern for worsening sepsis and sent to ICU. Pt at bedside. REVIEW OF SYSTEMS: As per HPI. PAST MEDICAL HISTORY: As per HPI. MEDICATIONS: Reviewed. ALLERGIES: Reviewed. SOCIAL HISTORY: Reviewed. FAMILY HISTORY: Noncontributory at present. PHYSICAL EXAM: Vital Signs: Reviewed. SBP >90 now. 4L O2, sat low 90s. Neurologic: pt lethargic but communicating. HEENT: anicteric, mm dry Cardiovascular: distant, s1 s2 Respiratory: b/l rales left worse then Right Abdomen: soft, nt Extremities: warm; chronic LE edema changes and dependency; mildly prolonged cap refill. Access: port LABS: Reviewed. IMAGING: Reviewed. MEDICATIONS: Reviewed. ASSESSMENT: 56 F Severe neutropenic sepsis, seemingly now responding to fluid. Initial fluid bolus conservative to avoid vol overload as she was being diuresed. Relative adrenal insuff LA not drawn due to poor access and use of metaport for fluid boluses and abx needs Pt already on broad spectrum abx this am and explaned post hypotension metastatic SCLC component of septic encephalopathy Ongoing tob abuse PLAN: Neurologic: lethargic and weak but tolerable and she is without complaints Cardiovascular: Perfusion ok and vol status being met with additional 1 liter. component of adrenal insuff and empiric inc in steroids iv. Tachycardia remaining and may not fix with fluids alone but give her time at present and consider need for low dose vasopressors. Liver disease may also leave baseline bp vasodilated. Respiratory: tolerable but don't need her to work too much and can move to high flow O2 early if flow requirement. currently pretty comfortable. No consolidation on cxr. Gastrointestinal: po. sup Renal/Metabolic: f/u lyte repletion Infectious Disease: broadened to cefepime and vanco for now. cellulitis vs line potentials at top pf ddx Hematology: pancytopenia post tx. onc following up needs. no transfusion needs from ccm currently Endocrine: stress dose steroids Musculoskeletal: bedrest currently. wounds f/u Psych/Social: updated; they've never discussed life supports etc; and didn't really want to discuss presently. Supportive and preventative care as ordered. SUP: po VTE prophylaxis: no chemical vte prophy sec to plt counts Disposition: ICU Code Status: Full presently Critical Care Time: 45min Leonel Slater DO
--- NOTE | 2017-03-22 15:14 | RAD ---
Indication: Mild dyspnea. Sepsis. History of RIGHT lung cancer. Comparison: February 24, 2017 CT. Technique: Upright AP 1430 hours Report: Rightward rotation noted. Bilateral mild patchy alveolar consolidation. Grossly clear pleural spaces. Negative for pneumothorax. Unremarkable mediastinal contours accounting for mild rightward rotation. Negative for cardiomegaly. Unremarkable central pulmonary vasculature. Tip of LEFT chest port at level of superior vena cava RIGHT atrial junction. IMPRESSION: 1. Bilateral patchy alveolar opacities suspicious for bronchopneumonia given the clinical context. 2. Negative for pleural effusions.
[2017-03-22 15:40] LABS: Urine Appearance Cloudy; Urine Blood 1+ (Negative); Urine Color Amber; Urine Ketones Negative (Negative); Urine Protein 1+(30 mg/dL) (Negative); Urine Specific Gravity 1.013 (1.010-1.030); Urine Urobilinogen Positive (Negative)
[2017-03-22] MEDS ORDERED: Norepinephrine 16MCG/ML IVPRE* 4,000 MCG/250 ML BAG IV SCH (16:00)
[2017-03-22] MEDS ORDERED: Norepinephrine 8 mg in 500 mL NS (Pharmacy Admixed Drip) IV SCH (17:00)
[2017-03-22] MEDS: NS 0.9% 1000 ML* 1,000 ML IV SCH (17:00)
[2017-03-22] MEDS: Vancomycin(*) 500 MG in NS 0.9% 250 ML* 250 ML IVPB SCH (22:48)
[2017-03-23] MEDS: Cefepime(*) 2 GM in D5W 50 ML BAG* 50 ML IVPB SCH ×2 (02:34→10:59)
[2017-03-23 05:59] LABS: Hematocrit 23 % (35-47); Mean Corpuscular HGB Conc 34 g/dl (31-36); Mean Corpuscular Hemoglobin 33 pg (27-31); Mean Corpuscular Volume 96 fL (80-97); Mean Platelet Volume 9 um3 (7.4-10.4); Platelet Count 23 10^3/ul (150-450); Red Blood Count 2.43 10^6/ul (4.0-5.4); Red Cell Distribution Width 14 % (10.5-15); White Blood Count 0.3 10^3/ul (3.5-10.8)
[2017-03-23 06:00] LABS: EGFR Non-African American 212.8 (>60)
[2017-03-23 06:26] LABS: ABS Basophils 0 10^3/ul (0-0.2); ABS Eosinophils 0 10^3/ul (0-0.6); ABS Lymphocytes 0.1 10^3/ul (1.0-4.8); ABS Monocytes 0 10^3/ul (0-0.8); ABS Neutrophils 0.2 10^3/ul (1.5-7.7); Eosinophil % 1.6 % (0-6); Lymphocyte % 25.2 % (25-47)
[2017-03-23] MEDS: Vancomycin(*) 500 MG in NS 0.9% 250 ML* 250 ML IVPB SCH ×2 (06:36→11:55)
[2017-03-23] MEDS: Hydrocortisone INJ* 100 MG VIAL IV SCH ×3 (06:36→21:56)
[2017-03-23] MEDS: ALPRAZolam TAB* 0.25 MG PO PRN ×4 (08:40→20:20)
[2017-03-23] MEDS: Omeprazole CAP* 20 MG PO SCH (08:40)
[2017-03-23] MEDS: Potassium Chlor TAB* 10 MEQ TAB.ER PO SCH ×2 (08:40→20:21)
[2017-03-23] MEDS: Dexamethasone TAB* 4 MG PO SCH (08:40)
[2017-03-23] MEDS: Ascorbic Acid TAB* 500 MG PO SCH (08:40)
[2017-03-23] MEDS: oxyCODONE TAB* 5 MG TAB PO PRN ×4 (08:41→20:20)
[2017-03-23] MEDS ORDERED: NS 0.9% 500 ML* 492 ML with Norepinephrine VIAL* 8 MG IV SCH ×2 (10:21)
[2017-03-23] MEDS ORDERED: Saline NASAL SPRAY 0.65%* BTL BOTH NARES PRN (10:59)
--- NOTE | 2017-03-23 11:31 | PN ---
Progress Note - Progress Note Date of Service: 03/23/17 Note: CRITICAL CARE MEDICINE DATE: 03/23/17 TIME: 1030 SUBJECTIVE: Patient seen and examined. Feels ok. PHYSICAL EXAM: Vital Signs: Reviewed. SBP >90. 2L O2; Uout low Neurologic: lethargic but communicating. mild encephalopathy HEENT: anicteric, mmm Cardiovascular: distant, s1 s2; port intact Respiratory: mild rhonchi bl L>R Abdomen: soft, nt Extremities: warm; chronic LE edema changes and dependency; dressings Access: port LABS: Reviewed. IMAGING: Reviewed. MEDICATIONS: Reviewed. ASSESSMENT: 56 F Severe neutropenic sepsis with septic shock with GCS and ecoli from cx thusfar Cellulitis Relative adrenal insuff metastatic SCLC Pancytopenia Component of mild septic encephalopathy Ongoing tob abuse Deconditioing PLAN: Neurologic: stable and more time Cardiovascular: Perfusion ok and vol status met. tachycardia to remain given her metabolic needs. can try to wean off levo but pre-emptively add midodrine given her liver/splanchnic dysequilibrium and needing more time with perfusion. steroid taper back off Respiratory: tolerable and not muc O2 needs. Gastrointestinal: po. sup Renal/Metabolic: f/u lytes and Uout Infectious Disease: Ceftriaxone alone now and f/u cx. wound care eval of leg Hematology: pancytopenia post tx - onc following up needs. no transfusion needs Endocrine: stress dose steroids and back to po decadron and wean off hydrocortisone Musculoskeletal: oob as able but weak. wounds f/u [facility] Supportive and preventative care as ordered. SUP: po VTE prophylaxis: no chemical vte prophy sec to plt counts currently Disposition: ICU today Code Status: Full presently Critical Care Time: 35min FGinna Slater DO
[2017-03-23] MEDS: CMC:Midodrine (NF) 5 MG TAB PO SCH ×3 (12:26→23:51)
[2017-03-23] MEDS: NS 0.9% 500 ML* 492 ML with Norepinephrine VIAL* 8 MG IV SCH ×2 (14:14)
[2017-03-23] MEDS: cefTRIAXone(*) 2 GM in D5W 100 ML BAG* 100 ML IVPB SCH (14:15)
[2017-03-23] MEDS: Ibuprofen TAB* 600 MG PO PRN (15:20)
[2017-03-23] MEDS: Cyclobenzaprine TAB* 10 MG PO PRN (17:03)
[2017-03-24] MEDS: oxyCODONE TAB* 5 MG TAB PO PRN ×5 (01:24→18:52)
[2017-03-24] MEDS: Ibuprofen TAB* 600 MG PO PRN (01:24)
[2017-03-24 05:59] LABS: EGFR Non-African American 346.1 (>60)
[2017-03-24] MEDS: CMC:Midodrine (NF) 5 MG TAB PO SCH ×3 (06:02→18:22)
[2017-03-24] MEDS: Hydrocortisone INJ* 100 MG VIAL IV SCH (06:02)
--- NOTE | 2017-03-24 09:13 | PN ---
Progress Note - Progress Note Date of Service: 03/24/17 SOAP: Subjective: []Feeling "pretty darn good." Still tired and weak, but improving. Legs less full, though cont. to weep. Mouth is sore and biggest complaint is dry nose. Medications: Acetaminophen (Tylenol Tab*) 650 mg PO Q6H PRN PRN Reason: FEVER Alprazolam (Xanax Tab*) 0.25 mg PO TID PRN PRN Reason: ANXIETY Last Admin: 03/23/17 20:20 Dose: 0.25 mg Ascorbic Acid (Vitamin C Tab*) 500 mg PO DAILY [facility] Last Admin: 03/23/17 08:40 Dose: 500 mg Cyclobenzaprine HCl (Flexeril Tab*) 10 mg PO TID PRN PRN Reason: PAIN Last Admin: 03/23/17 17:03 Dose: 10 mg Dexamethasone (Decadron Tab*) 4 mg PO DAILY [facility] Last Admin: 03/23/17 08:40 Dose: 4 mg Docusate Sodium (Colace Cap*) 100 mg PO BID PRN PRN Reason: CONSTIPATION Heparin Sodium (Porcine) (Heparin Flush Port (Ivad)) 5 ml FLUSH DAILY [facility] PRN Reason: Protocol Last Admin: 03/23/17 08:10 Dose: Not Given Sodium Chloride (Ns 0.9% 1000 Ml*) 1,000 mls @ 0 mls/hr IV PER RATE ENRIQUETA PRN Reason: KVO Last Admin: 03/22/17 17:00 Dose: 30 mls/hr Ceftriaxone Sodium 2 gm/ (Dextrose) 100 mls @ 200 mls/hr IVPB Q24H [facility] Stop: 03/25/17 11:59 Last Admin: 03/23/17 14:15 Dose: 200 mls/hr Norepinephrine Bitartrate 8 mg (/ Sodium Chloride) 500 mls @ 18.75 mls/hr IV Q24H ENRIQUETA; 5 MCG/MIN PRN Reason: Protocol Last Admin: 03/23/17 14:14 Dose: Not Given Ceftriaxone Sodium 2 gm/ (Sodium Chloride) 100 mls @ 200 mls/hr IVPB DAILY@ 1200 ENRIQUETA Ibuprofen (Motrin Tab*) 600 mg PO Q8H PRN PRN Reason: PAIN Last Admin: 03/24/17 01:24 Dose: 600 mg Midodrine (Midodrine (Nf)) 5 mg PO Q6H [facility] PRN Reason: Protocol Last Admin: 03/24/17 06:02 Dose: 5 mg Multi-Ingredient Mouthwash/Gargle (Miracle Mw-Henri/Nyst/Tetrac*) 5 ml SWISH SPIT QID [facility] Nicotine (Nicotine Patch 21 Mg/24 Hr*) 1 patch TRANSDERM DAILY PRN PRN Reason: CRAVING Omeprazole (Prilosec Cap*) 20 mg PO DAILY [facility] Last Admin: 03/23/17 08:40 Dose: 20 mg Ondansetron HCl (Zofran Tab*) 4 mg PO Q6H PRN PRN Reason: NAUSEA Oxycodone HCl (Roxycodone Tab*) 10 mg PO Q4H PRN PRN Reason: PAIN Last Admin: 03/24/17 06:03 Dose: 10 mg Potassium Chloride (Klor Con Er Tab*) 10 meq PO BID [facility] Last Admin: 03/23/17 20:21 Dose: 10 meq Prochlorperazine (Compazine Tab*) 10 mg PO Q6H PRN PRN Reason: NAUSEA Sodium Chloride (Sodium Chloride 0.65% Nasal [place]*) 1 spray BOTH NARES Q1H PRN PRN Reason: NASAL DRYNESS Last Admin: 03/23/17 13:33 Dose: 1 spray Objective: [] Vital Signs Temp Pulse Resp BP Pulse Ox 99.0 F 108 14 98/59 97 03/24/17 07:31 03/24/17 06:16 03/24/17 06:16 03/24/17 06:16 03/24/17 06:16 A&Ox3, EOMI, WARD, notably sleepy but communicating effectively HRR, ST on tele LS with rhonchi R>L, resp. even and non-labored +BS, abd. soft and non-tender +PP=bilat., +3 pitting edema with cont.'d weeping (non-purulent), erythema appears slightly decreased +Mucositis to buccal areas Laboratory Results - last 24 hr 03/24/17 03/24/17 05:20 07:30 WBC 0.3 L RBC 2.25 L Hgb 7.4 L Hct 22 L MCV 97 MCH 33 H MCHC 34 RDW 15 Plt Count 7 L* D MPV 8 Abs Basophils (Manual) 0 Normal RBC Morphology Normal Sodium 132 L Potassium 3.7 Chloride 104 Carbon Dioxide 21 L Anion Gap 7 BUN 22 Creatinine 0.21 L Est GFR ( Amer) 445.1 Est GFR (Non-Af Amer) 346.1 BUN/Creatinine Ratio 104.8 H Glucose 122 H Calcium 7.5 L Assessment: []56 yo female with metastatic SCLC, recently progressed, and now on Topotecan C1D11 (with 20% dose reduction d/t baseline plt. 90K). Admitted to the hospital with concern for bilat. LE cellulitis with progressive symptoms and found to be septic now recovering in the ICU. Plan: []1. Sepsis: E.Coli from urine, GCS from non-purulent cellulitis of LEs - cont. IV Ceftriaxone, good sensitivity for both - repeat blood cultures (peripheral and central) tomorrow to confirm clearance of bacteria (as there would be risk of seeding on port) 2. Pancytopenia: secondary to chemotherapy, expect recovery over next week - transfuse 1 unit platelets today - follow daily counts 3. Hypotension: no longer requiring gtt, goal of out of ICU this afternoon or tomorrow AM, though d/t severity of infection likely tomorrow 4. Weakness: likely r/t severe infection and subsequent deconditioning, though underlying cancer certainly a component. Request PT and suggest OOB to chair for lunch today 5. Mucositis: secondary to chemo, start MMW Discussed with Dr. Slater, appreciate meter/relay craftsman management
[2017-03-24 09:15] LABS: Hematocrit 22 % (35-47); Hemoglobin 7.4 g/dl (12.0-16.0); Mean Corpuscular HGB Conc 34 g/dl (31-36); Mean Corpuscular Hemoglobin 33 pg (27-31); Mean Corpuscular Volume 97 fL (80-97); Mean Platelet Volume 8 um3 (7.4-10.4); Platelet Count 7 10^3/ul (150-450); Red Blood Count 2.25 10^6/ul (4.0-5.4); Red Cell Distribution Width 15 % (10.5-15); White Blood Count 0.3 10^3/ul (3.5-10.8)
[2017-03-24] MEDS: Potassium Chlor TAB* 10 MEQ TAB.ER PO SCH ×2 (09:33→21:30)
[2017-03-24] MEDS: Dexamethasone TAB* 4 MG PO SCH (09:33)
[2017-03-24] MEDS: Omeprazole CAP* 20 MG PO SCH (09:33)
[2017-03-24] MEDS: Ascorbic Acid TAB* 500 MG PO SCH (09:33)
[2017-03-24 09:39] LABS: Monocytes % 5 % (0-13)
[2017-03-24] MEDS ORDERED: Vancomycin Trough Check NOTE FOLLOW UP ONE (10:30)
--- NOTE | 2017-03-24 11:00 | PN ---
Progress Note - Progress Note Date of Service: 03/24/17 Note: CRITICAL CARE MEDICINE DATE: 03/24/17 TIME: 950 SUBJECTIVE: Patient seen and examined. Feels better. PHYSICAL EXAM: Vital Signs: Reviewed. SBP >90. 2L O2 but can come off; Uout was low Neurologic: better mentation. communicating well HEENT: anicteric, mmm Cardiovascular: distant, s1 s2; port intact Respiratory: clearer Abdomen: soft, nt Extremities: warm; chronic LE edema changes and dependency but less red; dressings Access: port LABS: Reviewed. IMAGING: Reviewed. MEDICATIONS: Reviewed. ASSESSMENT: 56 F Severe neutropenic sepsis with septic shock with GCS and ecoli from cx thusfar Ecoli uti Cellulitis Relative adrenal insuff metastatic SCLC Pancytopenia Component of mild septic encephalopathy Ongoing tob abuse Deconditioing PLAN: Neurologic: stable Cardiovascular: Perfusion ok and vol status met. tachycardia slowly improving. no pressor need however left on midodrine through this acute phase since she may linger with vasoldilation until better immune recovery given live dyanmics and then can wean off midodrine. Respiratory: can wean off o2 Gastrointestinal: po. sup Renal/Metabolic: stable Infectious Disease: Ceftriaxone adequate. Hematology: pancytopenia post tx with onc following. plt today Endocrine: po decadron Musculoskeletal: oob. wounds f/u Psych/Social: updated as well Supportive and preventative care as ordered. SUP: po VTE prophylaxis: no chemical vte prophy sec to plt counts currently Disposition: likely to floor later today Code Status: Full presently Critical Care Time: 25min FGinna Slater DO
[2017-03-24] MEDS: cefTRIAXone(*) 2 GM in D5W 100 ML BAG* 100 ML IVPB SCH (12:05)
[2017-03-24] MEDS: ALPRAZolam TAB* 0.25 MG PO PRN ×2 (14:46→18:53)
[2017-03-24] MEDS: Magic M W2 Ben/Maal/Nyst/Lido* 240 ML MOUTHWASH (alt formulation) SWISH SPIT SCH ×3 (17:04→21:30)
[2017-03-24] MEDS: NS 0.9% 500 ML* 492 ML with Norepinephrine VIAL* 8 MG IV SCH ×2 (17:04)
[2017-03-24] MEDS: NS 0.9% 1000 ML* 1,000 ML IV SCH (17:35)
[2017-03-24 18:14] LABS: Mean Platelet Volume 7 um3 (7.4-10.4); Platelet Count 25 10^3/ul (150-450)
[2017-03-25] MEDS: CMC:Midodrine (NF) 5 MG TAB PO SCH ×4 (00:51→17:25)
[2017-03-25] MEDS: oxyCODONE TAB* 5 MG TAB PO PRN ×5 (04:26→21:19)
[2017-03-25 08:03] LABS: EGFR Non-African American 296.6 (>60)
[2017-03-25 08:05] LABS: Hematocrit 24 % (35-47); Hemoglobin 8.1 g/dl (12.0-16.0); Mean Corpuscular HGB Conc 34 g/dl (31-36); Mean Corpuscular Hemoglobin 33 pg (27-31); Mean Corpuscular Volume 97 fL (80-97); Mean Platelet Volume 7 um3 (7.4-10.4); Platelet Count 16 10^3/ul (150-450); Red Blood Count 2.44 10^6/ul (4.0-5.4); Red Cell Distribution Width 14 % (10.5-15); White Blood Count 0.3 10^3/ul (3.5-10.8)
[2017-03-25] MEDS: Ascorbic Acid TAB* 500 MG PO SCH (08:33)
[2017-03-25] MEDS: Omeprazole CAP* 20 MG PO SCH (08:33)
[2017-03-25] MEDS: Potassium Chlor TAB* 10 MEQ TAB.ER PO SCH ×2 (08:33→21:20)
[2017-03-25] MEDS: Magic M W2 Ben/Maal/Nyst/Lido* 240 ML MOUTHWASH (alt formulation) SWISH SPIT SCH ×4 (08:33→21:20)
[2017-03-25] MEDS: Dexamethasone TAB* 4 MG PO SCH ×4 (08:33→21:20)
[2017-03-25 09:14] LABS: Monocytes % 14 % (0-13)
[2017-03-25] MEDS ORDERED: Saline NASAL SPRAY 0.65%* BTL BOTH NARES PRN (09:45)
--- NOTE | 2017-03-25 10:02 | PN ---
Progress Note - Progress Note Date of Service: 03/25/17 SOAP: Subjective: []Tells me she is feeling better. No evidence for bleeding. Family worried she has been more confused. She denies this and then starts talking about her grandson in diapers (who is over 20 yo) and confusing September with March. Does admit to some word finding difficulty. Left eye has been "goopy" and "swollen" however denies change in vision and HAs. Medications: Acetaminophen (Tylenol Tab*) 650 mg PO Q6H PRN PRN Reason: FEVER Alprazolam (Xanax Tab*) 0.25 mg PO TID PRN PRN Reason: ANXIETY Last Admin: 03/24/17 18:53 Dose: 0.25 mg Ascorbic Acid (Vitamin C Tab*) 500 mg PO DAILY [facility] Last Admin: 03/25/17 08:33 Dose: 500 mg Cyclobenzaprine HCl (Flexeril Tab*) 10 mg PO TID PRN PRN Reason: PAIN Last Admin: 03/23/17 17:03 Dose: 10 mg Dexamethasone (Decadron Tab*) 4 mg PO DAILY [facility] Last Admin: 03/25/17 08:33 Dose: 4 mg Docusate Sodium (Colace Cap*) 100 mg PO BID PRN PRN Reason: CONSTIPATION Heparin Sodium (Porcine) (Heparin Flush Port (Ivad)) 5 ml FLUSH DAILY [facility] PRN Reason: Protocol Last Admin: 03/24/17 09:33 Dose: Not Given Ceftriaxone Sodium 2 gm/ (Dextrose) 100 mls @ 200 mls/hr IVPB Q24H [facility] Stop: 03/25/17 11:59 Last Admin: 03/24/17 12:05 Dose: 200 mls/hr Ceftriaxone Sodium 2 gm/ (Sodium Chloride) 100 mls @ 200 mls/hr IVPB DAILY@ 1200 [place] Ibuprofen (Motrin Tab*) 600 mg PO Q8H PRN PRN Reason: PAIN Last Admin: 03/24/17 01:24 Dose: 600 mg Midodrine (Midodrine (Nf)) 5 mg PO Q6H [facility] PRN Reason: Protocol Last Admin: 03/25/17 07:18 Dose: 5 mg Multi-Ingredient Mouthwash/Gargle (Magic M W2 Henri/Maal/Nyst/Lido*) 5 ml SWISH SPIT QID [facility] Last Admin: 03/25/17 08:33 Dose: 5 ml Nicotine (Nicotine Patch 21 Mg/24 Hr*) 1 patch TRANSDERM DAILY PRN PRN Reason: CRAVING Omeprazole (Prilosec Cap*) 20 mg PO DAILY [facility] Last Admin: 03/25/17 08:33 Dose: 20 mg Ondansetron HCl (Zofran Tab*) 4 mg PO Q6H PRN PRN Reason: NAUSEA Oxycodone HCl (Roxycodone Tab*) 10 mg PO Q4H PRN PRN Reason: PAIN Last Admin: 03/25/17 08:44 Dose: 10 mg Potassium Chloride (Klor Con Er Tab*) 10 meq PO BID [facility] Last Admin: 03/25/17 08:33 Dose: 10 meq Prochlorperazine (Compazine Tab*) 10 mg PO Q6H PRN PRN Reason: NAUSEA Sodium Chloride (Sodium Chloride 0.65% Nasal [place]*) 1 spray BOTH NARES Q1H PRN PRN Reason: NASAL DRYNESS Objective: [] Vital Signs Temp Pulse Resp BP Pulse Ox 98.3 F 117 20 105/56 99 03/25/17 08:40 03/25/17 08:40 03/25/17 08:44 03/25/17 08:40 03/25/17 08:40 Alert and oriented, however difficulty with time specifics and some word finding difficulty EOMI, left slightly slower than R, PERRLA though sluggish Left eye slightly swollen orbit with mild conjunctival irritation, no injection CN II-XII intact, no facial dropping, good strength=bilat UE/LEs HRR, ST on tele, no murmur noted LS with scattered wheeze +BS, abd. soft and non-tender +3 firm edema bilat., with serous weeping moderate amt.'s, left erythematous @ ankle with excoriation, no open areas Laboratory Results - last 24 hr 03/24/17 03/25/17 03/25/17 17:25 07:15 07:15 WBC 0.3 L RBC 2.44 L Hgb 8.1 L Hct 24 L MCV 97 MCH 33 H MCHC 34 RDW 14 Plt Count 25 L D 16 L MPV 7 L 7 L Immature Gran % 2 Neutrophils % 16 L Band Neutrophils % 2 Lymphocytes % 66 H Reactive Lymphs % 2 Monocytes % 14 H Eosinophils % 0 Basophils % 0 Abs Neuts (Manual) 0 L Abs Lymphs (Manual) 0.2 L Abs Monocytes (Manual) 0 Absolute Eos (Manual) 0 Abs Basophils (Manual) 0 Normal RBC Morphology Normal Sodium 134 Potassium 3.9 Chloride 103 Carbon Dioxide 24 Anion Gap 7 BUN 20 Creatinine 0.24 L Est GFR ( Amer) 381.5 Est GFR (Non-Af Amer) 296.6 BUN/Creatinine Ratio 83.3 H Glucose 91 Calcium 7.9 L Assessment: []56 yo female with metastatic SCLC admitted with cellulitis found to have gram negative sepsis (E.Coli-urine source and GCStrep-likely cellulitis as source) slowly improving, though course complicated by pancytopenia and now with confusion concerning for [employer] mets. Plan: []1. 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 Sepsis: blood cultures today to confirm resolution, cont. Ceftriaxone IV while neutropenic 3. Pancytopenia secondary to chemo: follow daily counts, no transfusions today, cont. reverse iso, however OK to go outside with family in wheelchair is she really wants to 4. Cellulitis: cont. wraps to help with weeping, holding diuretics d/t hypotension 5. Tachycardia: asymptomatic, cont. tele
[2017-03-25] MEDS: ALPRAZolam TAB* 0.25 MG PO PRN (10:03)
[2017-03-25] MEDS ORDERED: Gadoteridol* (CONTRAST) 279.3 MG/ML 10 ML IV ONE (11:22)
--- NOTE | 2017-03-25 11:51 | RAD ---
HISTORY: Confusion, small cell lung cancer COMPARISONS: October 01, 2016 TECHNIQUE: The following sequences were obtained of the head: Sagittal T1-weighted images, axial T2-weighted images, axial FLAIR images, axial susceptibility weighted images, axial T1-weighted images. Additionally, axial diffusion-weighted images were obtained with calculated apparent diffusion coefficients. Additionally, sagittal, coronal, and axial T1-weighted images were obtained after contrast enhancement with a gadolinium-based intravenous contrast agent. FINDINGS: HEMORRHAGE/INFARCT: There is no hemorrhage or acute infarct. MASSES/SHIFT: There is no mass or shift. EXTRA-AXIAL SPACES/MENINGES: There are no extra-axial fluid collections. SULCI AND VENTRICLES: The sulci and ventricles are normal in size and position for the patient's stated age. CEREBRUM: There has been interval development of a small focus of enhancement within the right middle frontal gyrus on axial image 20 measuring 0.5 cm in size. There is a punctate focus of enhancement within the left frontal hand radiata on axial image 19. There is a small focus of enhancement within the right caudate body on axial image 18 measuring 0.2 cm. There are scattered nonspecific White matter changes. BRAINSTEM: There are no focal parenchymal abnormalities. CEREBELLUM: There is a 0.6 cm focus of enhancement within the right inferior cerebral hemisphere. There is a 0.4 cm focus of enhancement within the left mid cerebellar hemisphere. There is a punctate focus of enhancement within the right inferior cerebellar hemisphere and axial image 7. The cerebellar tonsils are normal in size and position. SELLA: The sella is normal. PINEAL: The pineal region is clear. CP ANGLE/TEMPORAL BONES: The labyrinthine structures are grossly normal. VESSELS: Normal flow-voids are noted within the visualized vertebral vasculature. DIFFUSION ABNORMALITIES: There are no diffusion abnormalities. PARANASAL SINUSES/MASTOIDS: The paranasal sinuses are clear. ORBITS: The orbits are unremarkable. BONES AND SOFT TISSUE: There has been interval progression of the multiple calvarial and cervical spinous lesions consistent with progression of osseous metastatic disease. OTHER: None IMPRESSION: 1. THERE HAS BEEN INTERVAL DEVELOPMENT OF MULTIPLE ENHANCING FOCI WITHIN THE CEREBRAL AND CEREBELLAR HEMISPHERES BILATERALLY CONSISTENT WITH METASTATIC DISEASE TO THE BRAIN. THE LARGEST LESION IS NOTED WITHIN THE RIGHT INFERIOR CEREBELLUM MEASURING UP TO 0.6 CM IN SIZE. THERE IS NO SHIFT. 2. THERE HAS BEEN INTERVAL PROGRESSION OF THE MULTIFOCAL OSSEOUS METASTATIC DISEASE.
[2017-03-25] MEDS ORDERED: NS 0.9% IVPB SCH (12:00)
[2017-03-25] MEDS ORDERED: CEFTRIAXONE IVPB SCH (12:00)
[2017-03-25] MEDS ORDERED: Morphine INJ* 2 MG/ML 1 ML SYRINGE (TWO MG - NEW SYRINGE VERSION) IV PRN (12:45)
[2017-03-25] MEDS: Erythromycin OPTH OINT* APPLIC OINT LEFT EYE SCH ×2 (13:16→21:20)
--- NOTE | 2017-03-25 15:47 | PN ---
Progress Note - Progress Note Date of Service: 03/25/17 Note: I stopped in to see this patient after speaking with Chikis Hutton and reviewing the chart. The patient has widely metastatic disease with bone involvement, is on 3rd line chemotherapy with Topotecan with few options left, and because of AMS had an MRI this morning that revealed diffuse cerebral metastases for the first time. She has spoken with Dr. Do about possible brain irradiation, and is still deciding about that. She remains a full code. The patient said she is frankly overwhelmed at this time with all the new information, and feels she already has too much to digest, so is not willing to speak with me today. I outlined how I might assist her with processing all the information she has to deal with, and offered her my phone number to call if and when she is ready to speak with me. Thanks for asking for my involvement, I will follow along.
[2017-03-25] MEDS: oxyCODONE SR TAB(*) 15 MG TAB.SR PO SCH (21:20)
[2017-03-26] MEDS: CMC:Midodrine (NF) 5 MG TAB PO SCH ×2 (00:42→05:21)
[2017-03-26] MEDS: oxyCODONE TAB* 5 MG TAB PO PRN ×2 (02:35→10:08)
--- NOTE | 2017-03-26 04:32 | RADMED ---
CC: Dr. Cele Aguila * RADIATION ONCOLOGY INPATIENT CONSULTATION NOTE: DATE OF SERVICE: 03/25/17 REFERRING PHYSICIAN: Chikis Hutton NP DIAGNOSIS: Metastatic small cell carcinoma, AJCC stage IV. Performance Status : ECOG 3. HISTORY OF PRESENT ILLNESS: Radha Ahumada is a 56-year-old woman who was diagnosed with small cell lung cancer with liver metastasis in September 2016. She received chemotherapy with carboplatin and etoposide, and has also received nivolumab and most recently topotecan. She received palliative radiation therapy to the spine, 2000 cGy in 5 fractions completed 02/23/17. She is currently admitted to the hospital, and brain MRI was performed earlier today showing multiple enhancing lesions consistent with brain metastases. She is referred for discussion of palliative whole brain radiation therapy. PAST MEDICAL HISTORY: Small cell lung cancer as in history of present illness. History of hyperlipidemia, hypertension, and peripheral neuropathy. FAMILY HISTORY: Significant for her brother, who has experienced hepatobiliary cancer. Her mother also had cancer and the details are unclear. SOCIAL HISTORY: She is accompanied along with her and supportive family. She has been a smoker for most of her life. MEDICATIONS: As per the inpatient record. ALLERGIES: TAPE. REVIEW OF SYSTEMS: As in the history of present illness. Otherwise, complete review of systems obtained from the patient. PHYSICAL EXAMINATION: Vital Signs: Temperature 98.3, pulse rate 117, respiratory rate 17, oxygen saturation 99%, blood pressure 105/56. In general, she is awake, alert, cachetic, in no acute distress. Normocephalic, atraumatic. Sclerae anicteric. Neck: Supple. Full range of motion. Midline trachea. No mass palpable in the neck. Lungs with symmetric air entry bilaterally. Cardiovascular: S1, S2 regular. Abdomen: Soft, nontender. Extremities: Extensive bilateral lower extremity edema with some skin changes. Neurologic: Some limitation of leftward gaze in the left eye. Strength is globally decreased, particularly in the lower extremities likely related to excessive edema, symmetric in the upper extremities. ASSESSMENT AND PLAN: Radha Ahumada is a 56-year-old woman with progressive metastatic small cell lung cancer and newly discovered brain metastasis as well as a bone metastasis around the left orbit with intraorbital extension. I did review her history as well as the pathologic and radiographic findings, and discussed at some length with the patient and her family, as they are already well informed and familiar. I reviewed with them logistics and rationale for consideration of palliative whole brain radiation therapy, risks, benefits, and alternatives as well as acute and long-term frequent and uncommon toxicities. Her performance status is limited and she does not have other significant options for systemic therapy, and we openly discussed the grave nature of the situation, and the potential at whole brain radiation therapy would have more risk and side effect potential than likely benefit. I did discuss with Dr. Aguila, and the overall situation and challenges, palliative care and hospice might be the most appropriate option. I did answer the patient and her family' s questions to the best of my ability. She would like time to consider her options further before making any final decision. If she does elect for treatment, I typically recommend 3000 cGy in 10 fractions for her situation, and could start treatment for her in relatively short order. Thank you for giving me the opportunity to participate in the care of this very pleasant patient. [id number]/[facility] #: [id number] MTDD
[2017-03-26 06:50] LABS: EGFR Non-African American 270.5 (>60)
[2017-03-26 07:02] LABS: Hematocrit 24 % (35-47); Hemoglobin 8.2 g/dl (12.0-16.0); Mean Corpuscular HGB Conc 34 g/dl (31-36); Mean Corpuscular Hemoglobin 33 pg (27-31); Mean Corpuscular Volume 96 fL (80-97); Mean Platelet Volume 8 um3 (7.4-10.4); Platelet Count 9 10^3/ul (150-450); Red Cell Distribution Width 14 % (10.5-15); White Blood Count 0.6 10^3/ul (3.5-10.8)
[2017-03-26 08:11] LABS: ABS Basophils 0 10^3/ul (0-0.2); ABS Eosinophils 0 10^3/ul (0-0.6); ABS Lymphocytes 0.2 10^3/ul (1.0-4.8); ABS Monocytes 0.1 10^3/ul (0-0.8); ABS Neutrophils 0.4 10^3/ul (1.5-7.7); ABS Nucleated RBC 0 10^3/ul; Eosinophil % 0.1 % (0-6); Lymphocyte % 28.4 % (25-47); Nucleated Red Blood Cells % 0.5
--- NOTE | 2017-03-26 08:24 | DS ---
- Discharge Summary ADMIT DATE: DISCHARGE DATE: 03/26/2017 DISCHARGE DIAGNOSES: 1. severe sepsis, ecoli bacteremia 2. cellulitis 3. metastatic small cell lung cancer 4. new brain metastases 5. anasarca 6. chemotherapy plus disease related pancytopenia 7. comfort measures DISCHARGE FOLLOW UP: will try to arrange hospice [place] next week DISCHARGE MEDICATIONS: Home Medications Medication Instructions Recorded Confirmed Type ALPRAZolam TAB* [Xanax TAB*] 0.25 mg PO TID 03/21/17 03/21/17 History Cyclobenzaprine TAB* [Flexeril 10 10 mg PO TID PRN 03/21/17 03/21/17 History MG TAB*] Docusate CAP* [Colace Cap*] 100 mg PO BID 03/21/17 03/21/17 History Ondansetron TAB* [Zofran 4 MG Tab*] 4 mg PO Q6H PRN 03/21/17 03/21/17 History Prochlorperazine TAB* [Compazine 10 mg PO Q6H PRN 03/21/17 03/21/17 History Tab*] Dexamethasone TAB* [Decadron TAB*] 4 mg PO QID #120 tab 03/26/17 Rx LORazepam TAB(*) [Ativan 0.5 MG 0.5 mg PO Q4H PRN #180 tab MDD 3 mg 03/26/17 Rx TAB (*)] Magic M W2 Henri/Maal/Nyst/Lido* 5 ml SWISH SPIT QID #300 ml 03/26/17 Rx Morphine ORAL.CONC BULK BOT* 0.5 ml PO Q2HR PRN #30 oral.conc 03/26/17 Rx [Roxanol ORAL.CONC Bottle*] MDD 12 ml Saline NASAL SPRAY 0.65%* [Sodium 1 spray BOTH NARES Q1H PRN btl 03/26/17 Rx Chloride 0.65% Nasal [place]*] oxyCODONE SR TAB(*) [Oxycontin(*)] 15 mg PO Q12HR #60 tab.sr MDD 30 03/26/17 Rx oxyCODONE TAB* [Roxycodone TAB 5 10 mg PO Q4H PRN #180 tab MDD 60 03/26/17 Rx mg*] HOSPITAL COURSE: Radha was admitted from our office with pancytopenia and concern for cellulitis. She quickly deteriorated on admission, became febrile and hypotensive and was transferred to the ICU for severe sepsis requiring pressor support. Her cultures grew out strep and e coli. She was initially treated with broad spectrum antibiotics which were switched to ceftriaxone on sensitivity data. On 03/25 she was noted to be intermittently confused with left eye deviation and complaints of blurred vision. MRI of the brain unfortunately confirmed multiple brain metastases. She was seen in consultation by Dr. Do, who did offer palliative RT, however given her overall poor prognosis felt that she might not live long enough to see the benefits of this. I had a chemo and lengthy conversation with Radha this am regarding this. She has a very poor performance status and is progressing on third line chemotherapy for her small cell lung cancer, and therefore I have recommended consideration of hospice. She is very clear that she does NOT want to in the hospital and wants to spend whatever time left at home with her family and pets. She understands that she may very well pass away this weekend before hospice can enroll her, but was still interested in going home with whatever comfort measures we can provide. I discussed this with her Geoffrey, who was appropriately sad but in agreement. We did sign a molst and she will be sent home with comfort medications only, with the goal of enrolling her in hospice early next week. >30 mins spent, >50% in face to face counseling
[2017-03-26] MEDS: Magic M W2 Ben/Maal/Nyst/Lido* 240 ML MOUTHWASH (alt formulation) SWISH SPIT SCH ×3 (10:08→13:56)
[2017-03-26] MEDS: Dexamethasone TAB* 4 MG PO SCH ×2 (10:09→13:56)
[2017-03-26] MEDS: oxyCODONE SR TAB(*) 15 MG TAB.SR PO SCH (10:09)
[2017-03-26] MEDS: ALPRAZolam TAB* 0.25 MG PO PRN (10:09)
[2017-03-26 14:10] LABS: Mean Platelet Volume 8 um3 (7.4-10.4); Platelet Count 7 10^3/ul (150-450)
[2017-03-26 14:12] VITALS: BP 118/57
== END 2017-03-26 13:45 | disposition home or self-care (01) | DRG 871 ==
LOC: MED 17:46 → UNDOADMIN 18:27 → MED 18:27 → INTOOBSV 18:29 → UNDOADMOB 18:29 → OBSVTOIN 03-22 10:30 → ICU 03-22 12:39 → MED 03-24 14:04
PROVIDERS: ADMIT Internal Medicine Hematology & Oncology; ATTEND Internal Medicine Hematology & Oncology
PROC: 30233R1 Transfusion of Nonautologous Platelets into Peripheral Vein, Percutaneous Approach (ICD-10-PCS; principal; 2017-03-24)
DX: A41.51 Sepsis due to Escherichia coli [E. coli] (principal); D61.810 Antineoplastic chemotherapy induced pancytopenia; R65.21 Severe sepsis with septic shock; G93.41 Metabolic encephalopathy; C78.7 Secondary malignant neoplasm of liver and intrahepatic bile duct; D70.9 Neutropenia, unspecified; C79.31 Secondary malignant neoplasm of brain; C79.51 Secondary malignant neoplasm of bone; E27.40 Unspecified adrenocortical insufficiency; N39.0 Urinary tract infection, site not specified; C34.90 Malignant neoplasm of unspecified part of unspecified bronchus or lung; L03.116 Cellulitis of left lower limb; L03.115 Cellulitis of right lower limb; D69.59 Other secondary thrombocytopenia; T45.1X5A Adverse effect of antineoplastic and immunosuppressive drugs, initial encounter; Z51.5 Encounter for palliative care; R60.1 Generalized edema; E78.5 Hyperlipidemia, unspecified; I10 Essential (primary) hypertension; G62.9 Polyneuropathy, unspecified; F17.200 Nicotine dependence, unspecified, uncomplicated; E87.6 Hypokalemia; R50.81 Fever presenting with conditions classified elsewhere; K12.31 Oral mucositis (ulcerative) due to antineoplastic therapy; B96.20 Unspecified Escherichia coli [E. coli] as the cause of diseases classified elsewhere; Y92.009 Unspecified place in unspecified non-institutional (private) residence as the place of occurrence of the external cause; Z90.49 Acquired absence of other specified parts of digestive tract; Z80.0 Family history of malignant neoplasm of digestive organs
CPT/HCPCS: 36415; 70553; 71045; 80048; 80053; 81003; 81015; 83735; 85025; 85049; 87040; 87077; 87086; 87186; 87205; 87641; 93005; 94760; 99219; 99232; 99239; A9270-GY; A9579; G0378; J0692; J0696; J1642; J1720; J1940; J3370; J3480; J8540; P9035

== ENCOUNTER 2017-03-29 16:49 | Observation (INO) | payer OTHER ==
[2017-03-29] MEDS ORDERED: Prochlorperazine TAB* 10 MG PO PRN (17:41)
[2017-03-29] MEDS ORDERED: Cyclobenzaprine TAB* 10 MG PO PRN (17:41)
[2017-03-29] MEDS ORDERED: oxyCODONE TAB* 5 MG TAB PO PRN (17:41)
[2017-03-29] MEDS ORDERED: Ondansetron ODT TAB* 4 MG SL PRN (17:42)
[2017-03-29] MEDS ORDERED: Prochlorperazine SUPP* 25 MG SUPP PR PRN (17:42)
[2017-03-29] MEDS ORDERED: Ondansetron INJ* 2 MG/ML VIAL IV PRN (17:42)
[2017-03-29] MEDS ORDERED: Atropine 1% (ORAL/SL)* 15 ML BTL SL PRN (17:42)
[2017-03-29] MEDS ORDERED: Acetaminophen TAB* 325 MG PO PRN (17:42)
[2017-03-29] MEDS ORDERED: ALPRAZolam TAB* 0.25 MG PO SCH (21:00)
[2017-03-29] MEDS: Docusate CAP* 100 MG PO SCH (21:42)
[2017-03-29] MEDS: oxyCODONE SR TAB(*) 15 MG TAB.SR PO SCH (21:42)
[2017-03-29] MEDS: LORazepam INJ* 2 MG/ML 1 ML VIAL IV PUSH PRN (21:43)
[2017-03-29] MEDS: Magic M W2 Ben/Maal/Nyst/Lido* 240 ML MOUTHWASH (alt formulation) SWISH SPIT SCH (22:28)
[2017-03-30 00:01] VITALS: BP 110/50
[2017-03-30] MEDS: LORazepam INJ* 2 MG/ML 1 ML VIAL IV PUSH PRN ×4 (04:11→18:04)
[2017-03-30] MEDS: Morphine ORAL CONCENTRATE* 5 MG/0.25 ML ORAL.SYRIN SL PRN ×8 (04:11→22:18)
[2017-03-30] MEDS: oxyCODONE SR TAB(*) 15 MG TAB.SR PO SCH (08:35)
[2017-03-30] MEDS: Magic M W2 Ben/Maal/Nyst/Lido* 240 ML MOUTHWASH (alt formulation) SWISH SPIT SCH ×5 (08:36→20:31)
[2017-03-30] MEDS: Docusate CAP* 100 MG PO SCH ×2 (08:36→20:30)
[2017-03-30] MEDS ORDERED: fentaNYL PATCH 25 MCG/HR TRANSDERM SCH (17:00)
[2017-03-30] MEDS: fentaNYL Patch Check Q Shift 1 NOTE SCH (19:26)
--- NOTE | 2017-03-30 20:27 | HP ---
HISTORY AND PHYSICAL: DATE OF ADMISSION: 03/29/17 IDENTIFICATION: A 56-year-old female extensive stage small cell lung cancer, new brain metastases, transitioning to hospice. CHIEF COMPLAINT: Intractable pain. HISTORY OF PRESENT ILLNESS: Ms. Ahumada was recently in the hospital between and 03/26/17. She had presented with cellulitis while on chemotherapy with topotecan. She was started on broad-spectrum antibiotics and was septic on admission requiring the intensive care unit. She was transferred to the floor and had been doing reasonably well, but then developed mental status changes. She had an MRI of the brain that showed new PREP COOK metastases. She had been evaluated by Dr. Do, but given that she has been on third line chemotherapy with an overall poor prognosis, with brain metastasis, they decided to hold all additional therapy. She was transitioned to comfort measures and pain control and discharged out of the hospital with plans to enroll in hospice. Unfortunately, since going home, she had a very difficult time. reports that pain has been intractable. She is often screaming in pain and thriving. She has not been able to eat, taking only a few sips of water since discharge. Mental status has been fluctuant. She has not had any nausea or vomiting and she has not been febrile since going home. In the emergency room, she was given IV morphine and it has helped significantly. PAST MEDICAL HISTORY: 1. Non-smell cell lung cancer. Treated with carboplatin, etoposide, nivolumab , and topotecan. Progressed on third line therapy. 2. Left lower extremity cellulitis and sepsis. Prior culture is positive for staph and E. coli. Currently, forgoing antibiotics. 3. Hyperlipidemia. 4. Hypertension. 5. Peripheral neuropathy. PAST SURGICAL HISTORY: 1. Cholecystectomy. 2. Tissue AVR in 2013. MEDICATIONS: 1. Alprazolam 0.25 mg t.i.d. 2. Compazine 10 mg t.i.d. 3. Ondansetron 4 mg q.6 p.r.n. 4. Dexamethasone 4 mg 4 times a day. 5. Ativan 0.5 mg q.4 p.r.n. 6. Magic Mouthwash. 7. Morphine elixir 10 mg q.2 p.r.n. 8. OxyContin 15 mg p.o. q.4. 9. Oxycodone 10 mg p.o. q.4 p.r.n. ALLERGIES: LATEX. SOCIAL HISTORY: . is with her in clinic today. She has reasonable family support. FAMILY HISTORY: Mother, aunt, and uncle had cancer. Half-brother has liver cancer. REVIEW OF SYSTEMS: In addition to above, she has fairly severe fatigue. She is short of breath with any exertion. Denies palpitations or chest pain. She has been constipated. She has symptoms otherwise as above. : Negative. Musculoskeletal: Essentially bedbound and too weak to move. Skin: She has continued cellulitis in the left lower extremity. Neurologic: She has been in fluctuating mental status. Of note, oriented to . PHYSICAL EXAMINATION VITAL SIGNS: Temperature 97.9, BP 110/50, pulse 90, respirations 16, saturation 96%. HEENT: Mucosa dry. No oral lesions. No JVD. LUNGS: Decreased breath sounds bilaterally. HEART: Tachycardic, 120 on my exam. Regular rate and rhythm. ABDOMEN: Nontender, nondistended. Good bowel sounds. EXTREMITIES: Bilateral lower extremity edema. Cellulitis in the left leg, partially bandaged. Feet are cool to the touch. NEUROLOGIC: She is answering questions appropriately, but not oriented. Full exam deferred. ASSESSMENT AND PLAN: She is a 56-year-old female with end-stage small cell lung cancer who was discharged from the hospital several days ago with plan to go hospice. They have been unable to manage at home and she is coming with intractable pain. She will not be able to be discharged home. Options will include inpatient hospice, hospice residence, [facility] placement. Again, discussed with the patient and her comfort care measures. They do not want antibiotics or aggressive care. 1. Admission with comfort care measures. Vital signs only as needed. We will continue home Ativan, but change pain medicine to morphine. Continue her morphine concentrate 10 mg q.2 hours p.r.n. and her OxyContin 15 mg p.o. q.12. We will add IV morphine as needed. 2. Continue Flexeril and continue her bowel regimen. 3. IV Zofran and Compazine for nausea. 4. We would not be doing any blood tests, no DVT prophylaxis. 5. Consult hospice tomorrow. [id number]/[facility] #: [id number] [facility]
[2017-03-31] MEDS: Morphine ORAL CONCENTRATE* 5 MG/0.25 ML ORAL.SYRIN SL PRN ×4 (00:36→11:59)
[2017-03-31] MEDS: fentaNYL Patch Check Q Shift 1 NOTE SCH (07:10)
[2017-03-31] MEDS: LORazepam INJ* 2 MG/ML 1 ML VIAL IV PUSH PRN (07:38)
--- NOTE | 2017-03-31 08:18 | ED ---
Flynn Mcknight Angela, scribed for Roderick Welsh MD on 03/29/17 at 1730 . Complex/Multi-Sys Presentation - HPI Summary HPI Summary: This pt is a 56 y/o female, accompanied by her son, presenting to [facility] via EMS for AMS. Pt is confused and is unable to give a good history. She has PMHx of metastatic lung CA. History is given by pt's son. Son reports the pt was in the hospital all week for infection of her bilateral legs. Dr. Cele Aguila is pt's oncologist. Son states the pt wanted to be discharged from the hospital to see her grandchildren. Son and family were taking care of the pt, but son notes the pt needs to be in hospice. Per son, pt has too much pain and weakness, and is unable to care for her at home. As a family, they decided it was best for the pt to be admitted to hospice but states all the spots are full. Son reports the pt wants to see her son, Nuno who is in long-term. HPI is limited due to level 5 caveat - pt has confusion. - History Of Current Complaint Chief Complaint: EDGeneral Time Seen by Provider: 03/29/17 17:16 Hx Obtained From: Patient, Family/Remedial Reading Teacher - Son Hx From Patient Unobtainable Due To: Other - pt is confused Onset/Duration: Lasting Days, Still Present Timing: Days Severity Initially: Severe Aggravating Factor(s): nothing Alleviating Factor(s): nothing Associated Signs And Symptoms: Positive: Confusion, Weakness, Other - bilateral LE swelling - Allergies/Home Medications Allergies/Adverse Reactions: Allergies Allergy/AdvReac Type Severity Reaction Status Date / Time Latex Allergy Itching Verified 02/24/17 09:43 PMH/Surg Hx/FS Hx/Imm Hx Endocrine/Hematology History: Denies: Hx Diabetes Cardiovascular History: Reports: Hx Hypertension, Hx Peripheral Vascular Disease , Hx Valvular Heart Disease, Other Cardiovascular Problems/Disorders - tissue AVR Denies: Hx Pacemaker/ICD Respiratory History: Denies: Other Respiratory Problems/Disorders GI History: Denies: Other GI Disorders History: Denies: Hx Renal Disease Musculoskeletal History: Reports: Hx Back Problems, Other Musculoskeletal History - pain extremities at times Sensory History: Reports: Hx Contacts or Glasses Denies: Hx Hearing Aid Opthamlomology History: Reports: Hx Contacts or Glasses Neurological History: Reports: Other Neuro Impairments/Disorders - tingling numbness legs Psychiatric History: Reports: Hx Anxiety Denies: Hx Panic Disorder - Cancer History Cancer Type, Location and Year: LUNG/LIVER CA Hx Chemotherapy: Yes - Surgical History Surgery Procedure, Year, and Place: tubal,cholecystectomy, aortic valve Hx Anesthesia Reactions: No Infectious Disease History: No Infectious Disease History: Denies: Traveled Outside the [place] in Last 30 Days - Family History Known Family History: Positive: Cardiac Disease, Hypertension, Diabetes - Social History Alcohol Use: None Substance Use Type: Reports: None Substance Use Comment - Amount & Last Used: r/t chemo Smoking Status (MU): Former Smoker Amount Used/How Often: pack a day for 20 years Review of Systems - ROS Summary Review of Systems Summary: ROS is limited due to level 5 caveat - pt has confusion Negative: Fever, Chills Positive: Edema - in LE Neurological: Other - Confusion Positive: Weakness All Other Systems Reviewed And Are Negative: No Physical Exam - Summary Physical Exam Summary: VITAL SIGNS: Reviewed. GENERAL: Patient is an elderly and fragile ill looking female who is confused. Pt is unable to give history. HEAD AND FACE: No signs of trauma. No ecchymosis, hematomas or skull depressions. No sinus tenderness. EYES: PERRLA, EOMI x 2, No injected conjunctiva, no nystagmus. EARS: Hearing grossly intact. Ear canals and tympanic membranes are within normal limits. MOUTH: Oropharynx within normal limits. NECK: Supple, trachea is midline, no adenopathy, no JVD, no carotid bruit, no c- spine tenderness, neck with full ROM. CHEST: Symmetric, no tenderness at palpation LUNGS: Decreased breath sounds bilaterally. CVS: Regular rate and rhythm, S1 and S2 present, no murmurs or gallops appreciated. ABDOMEN: Soft, non-tender. No signs of distention. No rebound no guarding, and no masses palpated. Bowel sounds are normal. EXTREMITIES: FROM in all major joints, no cyanosis or clubbing. Swelling of bilateral lower extremities, more left than right. NEURO: Alert and oriented x 3. No acute neurological deficits. Speech is normal and follows commands. SKIN: Dry and warm Triage Information Reviewed: Yes Vital Signs On Initial Exam: Initial Vitals Temp Pulse Resp BP Pulse Ox 99.1 F 103 18 122/63 95 03/29/17 17:00 03/29/17 17:00 03/29/17 17:00 03/29/17 17:00 03/29/17 17:00 Vital Signs Reviewed: Yes Diagnostics - Vital Signs Vital Signs Temp Pulse Resp BP Pulse Ox 03/29/17 17:00 99.1 F 103 18 122/63 95 - Laboratory Lab Statement: Any lab studies that have been ordered have been reviewed, and results considered in the medical decision making process. Complex Multi-Symp Course/Dx Course Of Treatment: This pt is a 56 y/o female, accompanied by her son, presenting to [facility] via EMS for AMS. Pt is confused and is unable to give a good history. She has PMHx of metastatic lung CA. History is given by pt's son. Son reports the pt was in the hospital all week for infection of her bilateral legs. Dr. Cele Aguila is pt's oncologist. Son states the pt wanted to be discharged from the hospital to see her grandchildren. Son and family were taking care of the pt, but son notes the pt needs to be in hospice. Per son , pt has too much pain and weakness, and is unable to care for her at home. As a family, they decided it was best for the pt to be admitted to hospice but states all the spots are full. Son reports the pt wants to see her son, Nuno who is in long-term. HPI is limited due to level 5 caveat - pt has confusion. As soon as the pt arrived, I noticed the pt is in hospice care. I discussed the pt s case with Dr. Cortes, oncologist, who accepted the pt for admission. He does not recommend any type of imaging or testing. The pt will be admitted to Dr. Cortes. - Diagnoses Provider Diagnoses: Need for comfort care - Physician Notifications Discussed Care Of Patient With: Jos Cortes Time Discussed With Above Provider: 17:36 Instructed by Provider To: Other - I discussed pt care with Dr. Cortes, oncologist , who has agreed to admit the pt for comfort care. Discharge - Discharge Plan Condition: Stable Disposition: ADMITTED TO [facility] The documentation as recorded by the Flynn tamayo Angela accurately reflects the service I personally performed and the decisions made by me, Roderick Welsh MD.
[2017-03-31] MEDS ORDERED: LORazepam TAB(*) 0.5 MG SL PRN (10:06)
--- NOTE | 2017-03-31 10:13 | PN ---
Progress Note - Progress Note Date of Service: 03/31/17 SOAP: Subjective: []Responding at times in short answers and tells me she is comfortable. states since arriving to hospital has been much more calm. He is dealing appropriately. Medications: Acetaminophen (Tylenol Tab*) 650 mg PO Q4H PRN PRN Reason: FEVER Atropine Sulfate (Atropine 1% (Oral/Sl)*) 2 drop SL Q2H PRN PRN Reason: Terminal Secretions Docusate Sodium (Colace Cap*) 100 mg PO BID [facility] Last Admin: 03/30/17 20:30 Dose: Not Given Fentanyl (Duragesic Patch 25 Mcg/Hr*) 25 mcg TRANSDERM Q72H [facility] Last Admin: 03/30/17 17:07 Dose: 25 mcg Lorazepam (Ativan Inj*) 1 mg IV PUSH Q4H PRN PRN Reason: Anxiety/Agitation Last Admin: 03/31/17 07:38 Dose: 1 mg Lorazepam (Ativan Tab(*)) 0.5 mg SL Q4H PRN PRN Reason: Anxiety/agitation/restlessness Morphine Sulfate (Morphine Oral Concentrate*) 10 mg SL Q2H PRN PRN Reason: Pain or Dyspnea Last Admin: 03/31/17 06:03 Dose: 10 mg Multi-Ingredient Mouthwash/Gargle (Magic M W2 Henri/Maal/Nyst/Lido*) 5 ml SWISH SPIT QID [facility] Ondansetron HCl (Zofran Inj*) 8 mg IV Q8H PRN PRN Reason: NAUSEA/VOMITING Pharmacy Profile Note (Fentanyl Patch Check Q Shift) 1 note N/A 0700,1900 [facility] Last Admin: 03/31/17 07:10 Dose: 1 note Prochlorperazine (Compazine Tab*) 10 mg PO Q6H PRN PRN Reason: NAUSEA Prochlorperazine (Compazine Supp*) 25 mg VT Q12H PRN PRN Reason: NAUSEA/VOMITING Objective: [] Vital Signs Temp Pulse Resp BP Pulse Ox 98.2 F 90 16 110/50 96 03/31/17 00:06 03/29/17 20:10 03/31/17 07:38 03/29/17 20:10 03/29/17 20:10 Responsive to voice at times, responds to stimuli Answers questions, though often not in context Respirations even and non-labored Left eye swollen with exudate +Mucositis WARD Assessment: []56 yo female with end stage SCLC admitted to the hospital for comfort measures due to safety concerns with family's inability to manage at home. She now appears comfortable and appears stable. She has not had any significant PO intake in at least 2 days and I believe her prognosis is measured in days (week at most), however I do feel she is stable for transfer and I am not convinced her level of needs require inpt. care. Plan: []Cont. comfort measures D/C planning with palliative care
[2017-03-31] MEDS: Docusate CAP* 100 MG PO SCH (10:18)
--- NOTE | 2017-03-31 12:17 | DS ---
- Discharge Summary Admission Date: 03/29/17 Discharge Date: 03/31/17 Discharge Diagnosis: 1. End Stage SCLC: on comfort measures only, transition to hospice 2. Pain: well controlled on current regimen Home Medications Medication Instructions Recorded Confirmed Type Prochlorperazine TAB* [Compazine 10 mg PO Q6H PRN 03/21/17 03/29/17 History Tab*] Saline NASAL SPRAY 0.65%* [Sodium 1 spray BOTH NARES Q1H PRN btl 03/26/1703/29 Rx Chloride 0.65% Nasal [place]*] Acetaminophen TAB* [Tylenol TAB*] 650 mg PO Q4H PRN tab 03/31/17 Rx Atropine 1% (ORAL/SL)* 2 drop SL Q2H PRN #1 btl 03/31/17 Rx LORazepam TAB(*) [Ativan 0.5 MG 0.5 mg SL Q4H PRN #18 tab MDD 6 03/31/17 Rx TAB (*)] tabs Magic M W2 Henri/Maal/Nyst/Lido* 5 ml SL QID #60 ml 03/31/17 Rx Morphine ORAL CONCENTRATE* 10 mg SL Q2H PRN #30 ml MDD 120 mg 03/31/17 Rx Prochlorperazine SUPP* [Compazine 25 mg AL Q12H PRN #6 supp 03/31/17 Rx Supp*] fentaNYL PATCH 25 MCG/HR* 25 mcg TRANSDERM Q72H #2 patch MDD 03/31/17 Rx [Duragesic PATCH 25 Mcg/Hr*] 25 mcg Hospital Course: Please see admission note for full H&P, however briefly, Mrs. 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 She was recently in the hospital and found to have progressive disease (with new brain mets) on third line therapy. At this time the patient wanted only to be at home and due to her persistence and the family' s agreement she was d/c'd home with supportive meds on 03/26 with plan for hospice as soon as possible. Hospice was not able to get into the home until at which time the patient had declined rapidly and the patients family was no longer able to manage her symptoms. Though attempts were made to set her up for success at that time there were multiple concerns for both her and the family's safety and she was transferred to the hospital for management. On admission she received IV medications and within 24 hours was stabilized with controlled pain and decreased restlessness. She has had very little PO intake in the last 24 hours and her prognosis is measured in days. Due to the high needs and the family's inability to manage at home a hospice residence bed has been offered and the family has agreed. She will be transferred via ambulance to the residence today with comfort measures in place. Plan of care was reviewed with the at length. >40 min spent with >50% face to face counseling.
[2017-03-31] MEDS: Magic M W2 Ben/Maal/Nyst/Lido* 240 ML MOUTHWASH (alt formulation) SWISH SPIT SCH ×2 (13:38→13:39)
== END 2017-03-31 13:30 | disposition hospice, inpatient (51) | DRG 136 ==
LOC: ED 16:49 → INTOOBSV 17:54 → MED 17:54
PROVIDERS: ADMIT Internal Medicine Hematology & Oncology; ATTEND Internal Medicine Hematology & Oncology
DX: C34.90 Malignant neoplasm of unspecified part of unspecified bronchus or lung (principal); C79.31 Secondary malignant neoplasm of brain; G89.3 Neoplasm related pain (acute) (chronic); Z51.5 Encounter for palliative care; G62.9 Polyneuropathy, unspecified; I10 Essential (primary) hypertension; I73.9 Peripheral vascular disease, unspecified; E78.5 Hyperlipidemia, unspecified; F41.9 Anxiety disorder, unspecified; Z95.2 Presence of prosthetic heart valve; Z90.49 Acquired absence of other specified parts of digestive tract; Z82.49 Family history of ischemic heart disease and other diseases of the circulatory system; Z83.3 Family history of diabetes mellitus; Z91.040 Latex allergy status; Z87.891 Personal history of nicotine dependence; Z92.21 Personal history of antineoplastic chemotherapy; Z79.899 Other long term (current) drug therapy
CPT/HCPCS: 96374; 99217; 99220; 99223; 99226; 99232; 99239; 99283; A9270-GY; G0378; J1642; J2060